=== PATIENT | male | born 1985 | race African-American/Black ===

== ENCOUNTER 2020-06-09 15:52 | Inpatient (IN) | payer OTHER ==
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
[2020-06-09] MEDS ORDERED: LORazepam 2 MG/ML SDV VIAL ONE ×3 (16:33→20:34)
[2020-06-09] MEDS ORDERED: levETIRAcetam 500 MG/5 ML INJECTION VIAL IVPB ONE ×2 (16:51→16:56)
[2020-06-09] MEDS ORDERED: SODIUM CHLORIDE 0.9% 500 ML INFUS.BAG IV ONE ×2 (16:52→19:40)
[2020-06-09] MEDS ORDERED: ALBUTEROL SO4 HFA INHALER IH ONE (17:06)
[2020-06-09 17:13] LABS: BASO % 0.9 % (0-2.0); EOS % 0.1 % (0-4.5); HEMATOCRIT 40.6 % (35.4-49); HEMOGLOBIN 13.4 GM/dL (11.7-16.9); LYMPH % 15.8 % (8-40); MCH 33.6 pg (25.7-33.7); MCHC 33.1 g/dl (32.0-35.9); MEAN CELL VOLUME 101.5 fl (80-96); MEAN PLT VOLUME 10.6 fl (7.5-11.1); MONO % 7.4 % (3.8-10.2); NEUT % 75.8 % (42.8-82.8); RDW 13.1 % (11.9-15.9)
[2020-06-09] MEDS ORDERED: ALBUTEROL SO4 2.5/IPRATROPIUM 0.5 INH SOL 3 ML VIAL.NEB. NEB ONE (17:22)
[2020-06-09 17:29] LABS: ALBUMIN 3.9 g/dl (3.4-5.0); BILIRUBIN,TOTAL 0.6 mg/dL (0.2-1); BLOOD UREA NITROGEN 10.1 mg/dL (7-18); CALCIUM 9.2 mg/dL (8.5-10.1); POTASSIUM 3.5 mmol/L (3.5-5.1); TOT PROT 7.5 g/dl (6.4-8.2)
[2020-06-09 17:35] LABS: PLATELET COUNT 90 K/MM3 (134-434)
--- NOTE | 2020-06-09 17:37 | PDOC ---
Documentation entered by Saira Mcdowell SCRIBE, acting as scribe for Isai Gross MD. Isai Gross MD: This documentation has been prepared by the Jluy sanders Sydney, SCRIBE, under my direction and personally reviewed by me in its entirety. I confirm that the documentation accurately reflects all work, treatment, procedures, and medical decision making performed by me. Attending Attestation - Resident Resident Name: Daily Bonilla - ED Attending Attestation I have performed the following: I have examined & evaluated the patient, The case was reviewed & discussed with the resident, I agree w/resident's findings & plan, Exceptions are as noted - HPI HPI: 06/09/20 17:29 Patient is a 34 year old male with a significant past medical history of EtOH abuse, seizure disorder, who presents to the ED, from [facility], for alcohol withdrawal. As per patient, he had been sweating, shakey, and was nervous he was about to have a seizure, prompting his arrival to the ED. Patient states he last drank alcohol this morning. Patient states he has experienced alcohol withdrawal before and his present symptoms are similar to his previous withdrawal symptoms. Pt was seen at [facility] today but referred to ED for acti ve withdrawal symptoms. Pt also was found to have abnormal EKG. Pt currently denies any CP/SOB. Allergies: NKDA - Physicial Exam PE: 06/09/20 17:30 See resident exam - Medical Decision Making 06/09/20 17:41 34 M with ETOH withdrawal. Has h/o withdrawal seizures. Also noted to have TWI on EKG. Denies any active chest alston. - Labs - Ativan PRN 06/09/20 18:12 Labs wnl Trop negative Discharge - Discharge Information Problems reviewed: Yes Clinical Impression/Diagnosis: Alcohol withdrawal Qualifiers: Complication of substance-induced condition: uncomplicated Qualified Code(s): F10.230 - Alcohol dependence with withdrawal, uncomplicated Condition: Good Disposition: HOME - Follow up/Referral - Patient Discharge Instructions - Post Discharge Activity
[2020-06-09] MEDS ORDERED: ONDANSETRON 4 MG/2 ML VIAL IVPUSH ONE ×2 (20:28→21:48)
[2020-06-09] MEDS ORDERED: chlordiazePOXIDE HCL 25 MG CAPSULE PO ONE (20:47)
[2020-06-09] MEDS ORDERED: chlordiazePOXIDE HCL 25 MG CAPSULE ONE (20:53)
--- NOTE | 2020-06-09 21:00 | PN ---
Teaching Attending Note Name of Resident: Raza Gentile ATTENDING PHYSICIAN STATEMENT I saw and evaluated the patient. I reviewed the resident's note and discussed the case with the resident. I agree with the resident's findings and plan as documented. SUBJECTIVE: Patient is a 34 year old man with a PMH of Seizure disorder, Alcoholism, Hernia chani disc, Chronic back pain (uses Percocet and Marijuana) and Tobacco use sent from [facility] to the ER for alcohol withdrawal and chest pain. He reports that he drinks 1L of vodka a day and that the last time he drank was 1L this morning. He "throws up every day in the morning" until he has a drink. He reports a history of seizures during alcohol withdrawal. His last seizure was last week, during which time he also stopped taking his Keppra. He admits to chest pain, SOB, headache, and tremors. He denies fever, chills, chest pain, diarrhea, dysuria or melena. Denies illicit drug use. No sick contacts or recent travels. Family history is unremarkable. Noted to be anxious, shaking and tachycardic on arrival in the ER. OBJECTIVE: Restless, awake and tremulous Vital Signs Period Temp Pulse Resp BP Sys/[place] Pulse Ox Last 24 Hr 98.2 F 118 20 151/93 95-99 HEENT: No Jaundice, eye redness or discharge, PERRLA, EOMI. Normocephalic, atraumatic. External ears are normal and hearing is grossly intact. No nasal discharge. Neck: Supple, nontender. No palpable adenopathy or thyromegaly. No JVD Chest: Good effort. Clear to auscultation and percussion. Heart: Regular. No S3, rub or murmur Abdomen: Not distended, soft, nontender and no HSM. No rebound or guarding. Normal bowel sounds. Ext: Peripheral pulses intact. No leg edema. Skin: Warm and dry. No petechiae, rash or ecchymosis. Neuro: Alert. Oriented x3. Tremulous. CN 2-12 grossly intact. Sensation grossly intact in all four extremities and DTR are symmetric. Psych: Appropriate mood and affect. Good insight. Home Medications Medication Instructions Recorded NK [No Known Home Medication] 06/09/20 Abnormal Lab Results 06/09/20 06/09/20 16:45 16:51 MCV 101.5 H Plt Count 90 L Nucleated RBC % 1 H Random Glucose 179 H AST 273 H ALT 159 H Current Medications Generic Name Dose Route Start Last Admin Trade Name Yosi PRN Reason Stop Dose Admin Folic Acid 1 mg/ Thiamine HCl 1,000 mls @ 125 mls/hr 06/09/20 22:23 06/09/20 22:36 100 mg/ Multivitamins/Minerals IVPB 06/10/20 06:22 125 mls/hr 10 ml/ Sodium Chloride ONCE ONE Administration ASSESSMENT AND PLAN: 1. Alcohol withdrawal syndrome - Hyperglycemia, macrocytosis, thrombocytopenia and elevated LFTS likely due to alcoholism. Keppra level and urinalysis pending. No acute abnormality on CXR. ER staff prescribed Duoneb, Albuterol, Zofran, Librium, Ativan, Keppra 1 gm IV and IV NS for the patient. EKG shows sinus tachycardia at 119/minute and QTc 444, T wave inversion in III, aVF and V6 with no significant ST changes - no old EKG available for comparison. Will repeat EKG and troponin to rule out ACS. Will implement CIWA Ativan alcohol withdrawal protocol and do neurochecks. Implement seizure, fall and aspiration precautions. Treat with IV Banana bag, thiamine and folic acid. Monitor and replete electrolytes (Ca,Mg,K,P). Counseled patient about abstaining from alcohol. Will consult retail pos specialist and refer to alcohol detox upon discharge. Will check HbA1c, monitor blood glucose and implement insulin sliding scale. Viral testing for COVID-19 ordered and patient placed on airborne, droplet and contact isolation. Started on supplemental oxygen via nasal cannula. Will continue comprehensive care for all of patients comorbid conditions. 2. Tobacco Use Counseled on risks associated with tobacco use. We will provide patient all the necessary assistance to facilitate smoking cessation and prescribe Nicotine patch. 3. Obesity Counseled on the risks associated with obesity. Will provide patient all the necessary assistance, counseling and positive reinforcement to facilitate weight loss. Consult cash applications analyst. 4. DVT prophylaxis - Lovenox 40 mg SQ q 24 hours. 5. Advance directives - Full code
[2020-06-09] MEDS ORDERED: FOLIC ACID INJECTION - 1 MG, THIAMINE HCL 100 MG, MULTIVIT INJECTION ADULT 10 ML in SOD... IVPB ONE ×2 (22:23→23:15)
[2020-06-09] MEDS ORDERED: LORazepam 1 MG TABLET PO SCH (23:00)
[2020-06-09] MEDS ORDERED: LORazepam 1 MG TABLET PO PRN (23:14)
[2020-06-09] MEDS ORDERED: SODIUM CHLORIDE 1,000 ML IV SCH (23:15)
[2020-06-09] MEDS ORDERED: LORazepam 0.5 MG TABLET ONE (23:24)
[2020-06-09 23:55] LABS: EPI CELLS 14 /uL (0-25.1); HYALINE CASTS 7 /uL (0-3.1); URINE APPEARANCE CLEAR; URINE BACTERIA 43.9 /uL (0-1359); URINE BILIRUBIN 1+ (NEGATIVE); URINE COLOR ORANGE; URINE GLUCOSE (UA) NEGATIVE (NEGATIVE); URINE KETONE 1+ (NEGATIVE); URINE LEUK ESTERASE TRACE (NEGATIVE); URINE NITRITE POSITIVE (NEGATIVE); URINE PROTEIN 2+ (NEGATIVE); URINE WBC 13 /uL (0-25.8)
[2020-06-10] MEDS ORDERED: LORazepam 0.5 MG TABLET ONE ×4 (05:49→16:46)
[2020-06-10] MEDS: LORazepam 0.5 MG TABLET PO SCH ×4 (06:04→22:33)
--- NOTE | 2020-06-10 07:11 | HP ---
CHIEF COMPLAINT: alcohol withdrawal- tremors, n/v PCP: none HISTORY OF PRESENT ILLNESS: 34 y/o m w/ PMH of seizure disorder on keppra, alcohol abuse, sent over from [facility] due to chest pain, tremors and anxiety of one day duration that has worsened since onset. He reports that he drinks 1L of vodka a day and that the last time he drank was 1L this morning. He "throws up every day in the morning" until he has a drink. He reports a hx of seizures during alcohol withdrawal. His last seizure was last week, during which time he also stopped taking his Keppra. He admits to palpitations, tremors, nausea, vomit. Denies f/c/hematemesis, diarrhea, numbness or tingling ER course was notable for: (1) ativan 2 mg- multiple times (2) CIWA 11 (3) Keppra 1000 given Recent Travel: denies PAST MEDICAL HISTORY: seizure and alcoholism PAST SURGICAL HISTORY: none Social History: Smoking: denies Alcohol: 1L vodka daily Drugs: marjuana Allergies No Known Allergies Allergy (Verified 06/09/20 16:07) HOME MEDICATIONS: Home Medications Medication Instructions Recorded NK [No Known Home Medication] 06/09/20 REVIEW OF SYSTEMS He admits to palpitations, tremors, nausea, vomit. Denies f/c/hematemesis, diarrhea, numbness or tingling PHYSICAL EXAMINATION Vital Signs - 24 hr 06/09/20 06/09/20 06/09/20 16:08 18:05 20:10 Temperature 98.2 F Pulse Rate 118 H Pulse Rate [ 139 H Apical] Respiratory 20 20 Rate Blood Pressure 151/93 Blood Pressure 128/74 [Left Arm] O2 Sat by Pulse 95 99 97 Oximetry (%) 06/09/20 06/10/20 22:17 06:28 Temperature 98.1 F Pulse Rate Pulse Rate [ 102 H Apical] Respiratory 16 Rate Blood Pressure Blood Pressure 142/85 [Left Arm] O2 Sat by Pulse 97 97 Oximetry (%) GENERAL: tremolous, anxious, shaking, diaphoretic EYES: Pupils equal, round and reactive to light, extraocular movements intact, No lid lag. EARS, NOSE, THROAT: Moist mucous membranes. LUNGS: Breath sounds equal, clear to auscultation bilaterally. No wheezes, and no crackles. HEART: Regular rate and rhythm, normal S1 and S2 without murmur, rub or gallop. ABDOMEN: Soft, tender, distended, normoactive bowel sounds, no guarding, no rebound, no masses. MUSCULOSKELETAL: Normal range of motion at all joints. No bony deformities or tenderness. LOWER EXTREMITIES: 2+ pulses, warm, well-perfused. No calf tenderness. No peripheral edema. NEUROLOGICAL: Cranial nerves II-XII intact. Difficulty speaking due to anxiety SKIN: Warm, dry, normal turgor, no rashes or lesions noted, normal capillary refill. Laboratory Results - last 24 hr 06/09/20 06/09/20 06/09/20 16:45 16:51 23:40 WBC 5.0 RBC 4.00 Hgb 13.4 Hct 40.6 MCV 101.5 H MCH 33.6 MCHC 33.1 RDW 13.1 Plt Count 90 L MPV 10.6 Absolute Neuts (auto) 3.8 Neutrophils % 75.8 Lymphocytes % 15.8 Monocytes % 7.4 Eosinophils % 0.1 Basophils % 0.9 Nucleated RBC % 1 H Sodium 138 Potassium 3.5 Chloride 100 Carbon Dioxide 23 Anion Gap 16 BUN 10.1 Creatinine 1.0 Est GFR (CKD-EPI)AfAm 114.91 Est GFR (CKD-EPI)NonAf 99.15 Random Glucose 179 H Calcium 9.2 Total Bilirubin 0.6 AST 273 H ALT 159 H Alkaline Phosphatase 111 Creatine Kinase 232 Creatine Kinase Index 0.6 CK-MB (CK-2) 1.6 Troponin I 0.02 Total Protein 7.5 Albumin 3.9 Urine Color [place] Urine Appearance Clear Urine pH 6.0 Ur Specific [place] 1.036 H Urine Protein 2+ H Urine Glucose (UA) Negative Urine Ketones 1+ H Urine Blood Negative Urine Nitrite Positive H Urine Bilirubin 1+ H Urine Urobilinogen 1.0 Ur Leukocyte Esterase Trace Urine WBC (Auto) 13 Urine RBC (Auto) 20.0 Urine Casts (Auto) 7 U Epithel Cells (Auto) 14 Urine Bacteria (Auto) 43.9 ASSESSMENT/PLAN: 34 y/o m w/ PMH of seizure disorder on keppra, alcohol abuse, sent over from [facility] due to chest pain, tremors and anxiety of one day duration that has worsened since onset is admitted for alcohol withdrawal #Alcohol withdrawal hx of multiple etoh abuse with withdrawal [facility], tremors, diaphoretic, anxious Ativan protocol initiated thiamine, folate, B12 banana bag ordered IVF given alcohol levels trops, ekg Utox COVID19 #Transaminitis likely 2/2 to alcoholic hepatitis will cont to trend #Seizure hx keppra level ordered #Macrocytosis likely 2/2 to alcoholic liver disease will cont monitor #Asymptomatic UTI no symptoms, UA positive monitor #DVT ppx scds FEN monitor lytes regular diet IVF Dispo: monitor CIWA, cont ativan protocol, can dc to PC once pt stable Visit type - Emergency Visit Emergency Visit: Yes ED Registration Date: 06/09/20 Care time: The patient presented to the Emergency Department on the above date and was hospitalized for further evaluation of their emergent condition. - New Patient This patient is new to me today: Yes Date on this admission: 06/22/20 - Critical Care Critical Care patient: No ATTENDING PHYSICIAN STATEMENT I saw and evaluated the patient. I reviewed the resident's note and discussed the case with the resident. I agree with the resident's findings and plan as documented. SUBJECTIVE: OBJECTIVE: ASSESSMENT AND PLAN:
[2020-06-10 07:19] LABS: BASO % 0.4 % (0-2.0); EOS % 0.2 % (0-4.5); HEMATOCRIT 35.1 % (35.4-49); HEMOGLOBIN 11.5 GM/dL (11.7-16.9); LYMPH % 12.2 % (8-40); MCH 33.2 pg (25.7-33.7); MCHC 32.8 g/dl (32.0-35.9); MEAN CELL VOLUME 101.2 fl (80-96); MEAN PLT VOLUME 10.6 fl (7.5-11.1); MONO % 7.6 % (3.8-10.2); NEUT % 79.6 % (42.8-82.8); PLATELET COUNT 66 K/MM3 (134-434); RBC 3.47 M/mm3 (4.00-5.60); WHITE BLOOD COUNT 7.5 K/mm3 (4.0-10.0)
[2020-06-10 07:46] LABS: ALBUMIN 3.4 g/dl (3.4-5.0); BILIRUBIN,TOTAL 1.6 mg/dL (0.2-1); BLOOD UREA NITROGEN 8.3 mg/dL (7-18); CALCIUM 8.1 mg/dL (8.5-10.1); CREATININE 0.8 mg/dL (0.55-1.3); MAGNESIUM 1.1 mg/dL (1.8-2.4); PHOSPHOROUS 1.7 mg/dL (2.5-4.9); POTASSIUM 3.5 mmol/L (3.5-5.1); TOT PROT 6.3 g/dl (6.4-8.2)
[2020-06-10] MEDS ORDERED: ACETAMINOPHEN 500 MG TABLET (FP) PO ONE (08:41)
--- NOTE | 2020-06-10 08:51 | CON.CARD ---
Cardiology Consult (text) - Consultation Consultation Note: 34 M sent from [facility] with CP. Occurred in setting of chronic etoh abuse, now with withdrawal sx's (tremor, anxiety/agitation). Troponin neg x 2 ECG x3 unchanged: NSR, possible LVH, NSST-Ts ? LVH assctd repol abn, no old CXR clear lungs, normal cardiac/mediastinal silhouette tachycardic, otherwise VSs stable including normal sat. labs notable for thrombocytopenia and transaminitis Formal consult to follow. Plan for now: echo to rule out etoh-cmp consider stress echo once etoh withdrawal is stabilized no targeted ischemia med therapy currently indicated monitor tele, observe clinically for ischemic sx's w/u for cirrhosis/other causes of thrombocytopenia per hospitalist
[2020-06-10] MEDS ORDERED: ACETAMINOPHEN 500 MG TABLET (FP) ONE (09:37)
[2020-06-10] MEDS ORDERED: THIAMINE HCL 200 MG/2 ML VIAL ONE (09:54)
[2020-06-10] MEDS ORDERED: FOLIC ACID 1 MG TABLET (FP) ONE (09:54)
[2020-06-10] MEDS: THIAMINE HCL 200 MG/2 ML VIAL IVPB SCH (09:57)
[2020-06-10] MEDS: FOLIC ACID 1 MG TABLET (FP) PO SCH (09:57)
[2020-06-10] MEDS: CYANOCOBALAMIN (VITAMIN B-12) 100 MCG TABLET PO SCH (09:57)
[2020-06-10 09:59] LABS: COCAINE, UR NEGATIVE ng/ml (CUTOFF=300); METHADONE, UR NEGATIVE ng/ml (CUTOFF=300); PHENCYCLIDINE,URINE NEGATIVE ng/ml (CUTOFF=25); URINE AMPHETAMINES NEGATIVE ng/ml (CUTOFF=500); URINE BARBITURATES NEGATIVE ng/ml (CUTOFF=200)
[2020-06-10] MEDS ORDERED: ASPIRIN 81 MG CHEWABLE TABLETS PO SCH (10:00)
[2020-06-10 10:20] LABS: OPIATES, URI POSITIVE ng/ml (CUTOFF=300); URINE BENZODIAZEPINES POSITIVE ng/ml (CUTOFF=200)
[2020-06-10] MEDS ORDERED: MAGNESIUM SULF 50% (8.12 MEQ/2 ML-1 GM VIAL) IVPB ONE (11:07)
[2020-06-10] MEDS ORDERED: MAGNESIUM SULFATE IN WATER 2 GM/50 ML IVPB IVPB ONE (11:15)
[2020-06-10] MEDS ORDERED: MAGNESIUM 1GM/D5W - 2 GM/200 ML IVPB IVPB ONE (11:22)
--- NOTE | 2020-06-10 11:22 | PN ---
Progress Note (short form) - Note Progress Note: SUBJECTIVE: Complains of shakes, chest discomfort, diarrhea OBJECTIVE: Afebrile, Hemodynamically Stable. Last Vital Signs Temp Pulse Resp BP Pulse Ox 98.9 F 98 H 18 149/93 99 06/10/20 08:06 06/10/20 08:06 06/10/20 10:02 06/10/20 08:06 06/10/20 10:02 HEENT: Atraumatic, Normocephalic. Heart - S1, S2, RRR Lungs - L lower zone crackles. Abdomen - Soft, mils generalized tenderness Extremities - no edema, no calf tenderness Neuro - AAO x 3. Tremulous. No hallucinations/seizures. Laboratory Results - last 24 hr 06/09/20 06/09/20 06/09/20 16:45 16:51 23:40 WBC 5.0 RBC 4.00 Hgb 13.4 Hct 40.6 MCV 101.5 H MCH 33.6 MCHC 33.1 RDW 13.1 Plt Count 90 L MPV 10.6 Absolute Neuts (auto) 3.8 Neutrophils % 75.8 Lymphocytes % 15.8 Monocytes % 7.4 Eosinophils % 0.1 Basophils % 0.9 Nucleated RBC % 1 H Sodium 138 Potassium 3.5 Chloride 100 Carbon Dioxide 23 Anion Gap 16 BUN 10.1 Creatinine 1.0 Est GFR (CKD-EPI)AfAm 114.91 Est GFR (CKD-EPI)NonAf 99.15 Random Glucose 179 H Calcium 9.2 Phosphorus Magnesium Total Bilirubin 0.6 AST 273 H ALT 159 H Alkaline Phosphatase 111 Creatine Kinase 232 Creatine Kinase Index 0.6 CK-MB (CK-2) 1.6 Troponin I 0.02 Total Protein 7.5 Albumin 3.9 Urine Color [place] Urine Appearance Clear Urine pH 6.0 Ur Specific [place] 1.036 H Urine Protein 2+ H Urine Glucose (UA) Negative Urine Ketones 1+ H Urine Blood Negative Urine Nitrite Positive H Urine Bilirubin 1+ H Urine Urobilinogen 1.0 Ur Leukocyte Esterase Trace Urine WBC (Auto) 13 Urine RBC (Auto) 20.0 Urine Casts (Auto) 7 U Epithel Cells (Auto) 14 Urine Bacteria (Auto) 43.9 Opiates Screen Methadone Screen Barbiturate Screen Phencyclidine Screen Ur Amphetamines Screen MDMA (Ecstasy) Screen Benzodiazepines Screen Cocaine Screen U Marijuana (THC) Screen 06/10/20 06/10/20 06/10/20 05:39 05:39 08:14 WBC 7.5 RBC 3.47 L Hgb 11.5 L Hct 35.1 L MCV 101.2 H MCH 33.2 MCHC 32.8 RDW 13.0 Plt Count 66 L D MPV 10.6 Absolute Neuts (auto) 5.9 Neutrophils % 79.6 Lymphocytes % 12.2 D Monocytes % 7.6 Eosinophils % 0.2 D Basophils % 0.4 Nucleated RBC % 1 H Sodium 140 Potassium 3.5 Chloride 105 Carbon Dioxide 27 Anion Gap 8 BUN 8.3 Creatinine 0.8 Est GFR (CKD-EPI)AfAm 136.99 Est GFR (CKD-EPI)NonAf 118.20 Random Glucose 96 Calcium 8.1 L Phosphorus 1.7 L Magnesium 1.1 L Total Bilirubin 1.6 H AST 286 H ALT 143 H Alkaline Phosphatase 93 Creatine Kinase Creatine Kinase Index CK-MB (CK-2) Troponin I 0.03 Total Protein 6.3 L Albumin 3.4 Urine Color Urine Appearance Urine pH Ur Specific [place] Urine Protein Urine Glucose (UA) Urine Ketones Urine Blood Urine Nitrite Urine Bilirubin Urine Urobilinogen Ur Leukocyte Esterase Urine WBC (Auto) Urine RBC (Auto) Urine Casts (Auto) U Epithel Cells (Auto) Urine Bacteria (Auto) Opiates Screen Positive A* Methadone Screen Negative Barbiturate Screen Negative Phencyclidine Screen Negative Ur Amphetamines Screen Negative MDMA (Ecstasy) Screen Negative Benzodiazepines Screen Positive A* Cocaine Screen Negative U Marijuana (THC) Screen Positive A* Current Medications Generic Name Dose Route Start Last Admin Trade Name Freq PRN Reason Stop Dose Admin Cyanocobalamin 100 mcg 06/10/20 10:00 06/10/20 09:57 Vitamin B12 - PO 100 mcg DAILY MICHAEL Administration Folic Acid 1 mg 06/10/20 10:00 06/10/20 09:57 Folic Acid - PO 1 mg DAILY M[place]ALE Administration Sodium Chloride 1,000 mls @ 83 mls/hr 06/09/20 23:15 06/10/20 00:44 Normal Saline - IV 83 mls/hr ASDIR MICHAEL Administration Potassium Phosphate 30 mm/ 510 mls @ 62.5 mls/hr 06/10/20 11:30 Dextrose IVPB 06/10/20 19:39 ONCE ONE Magnesium Sulfate 2 gm in 50 mls @ 50 mls/hr 06/10/20 11:15 Magnesium Sulf 2 G/50 Ml Bag IVPB 06/10/20 12:14 ONCE ONE Lorazepam 1 mg 06/11/20 05:00 Ativan - PO 06/11/20 23:01 0500,1100,1700,2300 MICHAEL Lorazepam 1 mg 06/09/20 23:14 Ativan - PO 06/11/20 23:59 Q4H PRN Symptoms of Withdrawal Lorazepam 0.5 mg 06/12/20 05:00 Ativan - PO 06/12/20 23:01 Q6H MICHAEL Lorazepam 0.5 mg 06/12/20 00:00 Ativan - PO 06/12/20 23:59 Q4H PRN Symptoms of Withdrawal Lorazepam 0.5 mg 06/13/20 05:00 Ativan - PO 06/13/20 05:01 ONCE ONE Lorazepam 2 mg 06/09/20 23:20 06/10/20 10:54 Ativan - PO 06/10/20 23:01 2 mg 0500,1100,1700,2300 MICHAEL Administration Thiamine HCl 200 mg 06/10/20 10:00 06/10/20 09:57 Vitamin B1 Injection - IVPB 200 mg DAILY MICHAEL Administration Home Medications Medication Instructions Recorded NK [No Known Home Medication] 06/09/20 ASSESSMENT/PLAN: 34 year old male with history of Alcohol excess, Alcohol related Seizure disorder, sent from [facility] for Chest discomfort in the context of acute alcohol withdrawal. Also reports some abdominal discomfort associated with coughing and Diarrhea. No sputum/hemoptysis. 1. Acute Alcohol Withdrawal Ativan as per CIWA Thiamine, MVI, Folic Acid IV hydration 2. Elevated Transaminases, likely due to Alcoholic Hepatitis vs Cirrhosis Abdominal US and and Viral Hepatitis screen requested. 3. Cough/CP/crackles LLZ ECG - T wave inversions III, aVF, V6 CXR - no acute findings. ? PNA/?ischemic CP/?COVID CT Chest ordered COVID PCR pending Cardiology consulted 4. Alcohol-related Seizure Disorder Resume Keppra 5. Thrombocytopenia/Macrocytosis, likely sec to Alcohol excess/Liver disease Will send B12/Folate levels. 6. Polysubstance Abuse - Utox pos for opiates/[facility] Addiction [facility] consulted. 7. Hypomagnesemia/hypophosphatemia - repleted. DVT Px - SCDs. Lovenox/Heparin SQ held due to Thrombocytopenia. GI Px - PPI Visit type - Emergency Visit Emergency Visit: Yes ED Registration Date: 06/09/20 Care time: The patient presented to the Emergency Department on the above date and was hospitalized for further evaluation of their emergent condition. - New Patient This patient is new to me today: Yes Date on this admission: 06/10/20 - Critical Care Critical Care patient: No - Discharge Referral Referred to [facility] Med P.C.: No
[2020-06-10] MEDS ORDERED: SODIUM CHLORIDE 1,000 ML IV SCH (11:23)
[2020-06-10] MEDS ORDERED: POTASSIUM PHOSPHATE 30 MM in DEXTROSE 5%-WATER - 500 ML IVPB ONE (11:30)
[2020-06-10] MEDS ORDERED: PANTOPRAZOLE 40 MG TABLET ONE (12:18)
[2020-06-10] MEDS ORDERED: levETIRAcetam 500 MG TABLET (FP) PO ONE (12:19)
[2020-06-10] MEDS: levETIRAcetam 500 MG TABLET (FP) PO SCH (12:37)
[2020-06-10] MEDS: PANTOPRAZOLE 40 MG TABLET PO SCH (12:37)
--- NOTE | 2020-06-10 13:13 | CON.CARD ---
Consult Consult Specialty:: cardio - History of Present Illness Chief Complaint: cp History of Present Illness: 34 M sent from [facility] with CP. Occurred in setting of chronic etoh abuse with retching and hematemesis, and with withdrawal sx's (tremor, anxiety/agitation). Pt also states he has been coughing and feels like his asthmatic sx's, which often includes similar chest wall pain. HURTS MORE WHEN HE COUGHS. denies leg swelling, wheezing, palp Troponin neg x 2 ECG x3 unchanged: NSR, possible LVH, NSST-Ts ? LVH assctd repol abn, no old CXR clear lungs, normal cardiac/mediastinal silhouette tachycardic, otherwise VSs stable including normal sat. labs notable for thrombocytopenia and transaminitis - Smoking History Smoking history: Current every day smoker Have you smoked in the past 12 months: No Home Medications - Allergies Allergies/Adverse Reactions: Allergies Allergy/AdvReac Type Severity Reaction Status Date / Time No Known Allergies Allergy Verified 06/09/20 16:07 - Home Medications Home Medications: Ambulatory Orders NK [No Known Home Medication] 06/09/20 Family Medical History Family History: Denies (no known cmp) Review of Systems - Review of Systems Constitutional: denies: Chills, Fever Eyes: denies: Eye Pain HENT: denies: Nasal Congestion Neck: denies: Stiffness Cardiovascular: denies: Palpitations Respiratory: denies: Orthopnea, PND Gastrointestinal: denies: Diarrhea, Rectal Bleeding Genitourinary: denies: Burning, Hematuria Musculoskeletal: denies: Muscle Pain Integumentary: denies: Rash Neurological: denies: Numbness, Seizure, Syncope Endocrine: denies: Excessive Sweating Hematology/Lymphatic: denies: Excessive Bleeding Vital Signs: Vital Signs Temperature 98.9 F 06/10/20 08:06 Pulse Rate 98 H 06/10/20 08:06 Respiratory Rate 18 06/10/20 10:02 Blood Pressure 149/93 06/10/20 08:06 O2 Sat by Pulse Oximetry (%) 99 06/10/20 10:02 Constitutional: Yes: Well Nourished, No Distress Eyes: No: Sclera Icterus HENT: No: Nasal Congestion Neck: No: Decreased ROM Respiratory: Yes: CTA Bilaterally, Rhonchi, Wheezes (faint L base). No: Accessory Muscle Use, Rales Gastrointestinal: Yes: Normal Bowel Sounds. No: Distention, Hepatomegaly, P alpable Mass, Tenderness Cardiovascular: Yes: Regular Rate and Rhythm JVD: No Carotid Bruit: No PMI: Non-Displaced Heart Sounds: Yes: S1, S2. No: Gallop Murmur: No: Systolic Murmur, Diastolic Murmur Musculoskeletal: Yes: Other (No kyphosis) Extremities: No: Cool, Cyanosis Edema: No Peripheral Pulses: 2+ Left Carotid, 2+ Right Carotid, 2+ Left Doralis Pedis, 2+ Right Dorsalis Pedis Integumentary: No: Jaundice Neurological: Yes: Alert, Oriented (x3) Psychiatric: No: Agitated - Other Data Labs, Other Data: CBC, BMP 06/10/20 05:39 06/10/20 05:39 Troponin, BNP 06/09/20 06/10/20 16:51 05:39 Troponin I 0.02 0.03 Troponin, BNP 06/09/20 06/10/20 16:51 05:39 Troponin I 0.02 0.03 Assessment/Plan ECG x3 unchanged: NSR, possible LVH, NSST-Ts ? LVH assctd repol abn, no old CXR: clear lungs, normal cardiac/mediastinal silhouette chest pain: -pain is pleuritic (with coughing) and tender on palpation over affected area. -secondary to cough with muscle strain -trop neg x 2 and no ischemic changes on serial ECGs confirms this is not cardiac ischemic cp -no further w/u indicated abnormal ecg, etoh abuse: -echo to r/o cardiomyopathy (can be completed as outpt if otherwise stable for d/c) -no clinical signs of CHF transaminitis, thrombocytopenia: -w/u for cirrhosis per hospitalist asthma, cough: -Covid pending -per hospitalist etoh, drug abuse: -per hospitalist
[2020-06-11] MEDS ORDERED: MAGNESIUM SULF 50% (8.12 MEQ/2 ML-1 GM VIAL) IVPB ONE ×2 (01:32→02:22)
[2020-06-11] MEDS ORDERED: NAPH,MB-DB/K PH,MBDB POWDER PACKET PO ONE ×2 (01:34→02:22)
[2020-06-11 02:20] LABS: CALCIUM 9.1 mg/dL (8.5-10.1); CREATININE 0.9 mg/dL (0.55-1.3); MAGNESIUM 1.4 mg/dL (1.8-2.4); PHOSPHOROUS 2.3 mg/dL (2.5-4.9); POTASSIUM 3.1 mmol/L (3.5-5.1)
[2020-06-11] MEDS ORDERED: MAGNESIUM SULFATE IN WATER 2 GM/50 ML IVPB IVPB ONE (02:45)
[2020-06-11] MEDS: KCL 10 MEQ IVPB 10 MEQ/100 ML INFUS.BAG IVPB SCH ×3 (03:00→05:55)
[2020-06-11] MEDS: LORazepam 1 MG TABLET PO SCH ×3 (04:50→17:11)
--- NOTE | 2020-06-11 09:14 | EKG ---
Test Reason : Blood Pressure : / mmHG Vent. Rate : 086 BPM Atrial Rate : 086 BPM P-R Int : 124 ms QRS Dur : 096 ms QT Int : 388 ms P-R-T Axes : 072 069 047 degrees QTc Int : 464 ms NORMAL SINUS RHYTHM MODERATE VOLTAGE CRITERIA FOR LVH, MAY BE NORMAL VARIANT BORDERLINE ECG WHEN COMPARED WITH ECG OF 09-JUN-2020 23:50, T WAVE AMPLITUDE HAS INCREASED IN LATERAL LEADS Confirmed by Pato Pitts ([id number]) on 06/11/2020 9:14:35 AM Referred By: Sudhakar LAZO Confirmed By:Pato Pitts
--- NOTE | 2020-06-11 09:17 | EKG ---
Test Reason : Blood Pressure : / mmHG Vent. Rate : 104 BPM Atrial Rate : 104 BPM P-R Int : 116 ms QRS Dur : 102 ms QT Int : 374 ms P-R-T Axes : 072 062 035 degrees QTc Int : 491 ms SINUS TACHYCARDIA VOLTAGE CRITERIA FOR LEFT VENTRICULAR HYPERTROPHY ABNORMAL ECG WHEN COMPARED WITH ECG OF 09-JUN-2020 16:51, NO SIGNIFICANT CHANGE WAS FOUND Confirmed by Pato Pitts ([id number]) on 06/11/2020 9:17:30 AM Referred By: Confirmed By:Pato Pitts
--- NOTE | 2020-06-11 09:24 | EKG ---
Test Reason : Blood Pressure : / mmHG Vent. Rate : 119 BPM Atrial Rate : 119 BPM P-R Int : 118 ms QRS Dur : 086 ms QT Int : 316 ms P-R-T Axes : 047 061 028 degrees QTc Int : 444 ms SINUS TACHYCARDIA VOLTAGE CRITERIA FOR LEFT VENTRICULAR HYPERTROPHY T WAVE ABNORMALITY, CONSIDER INFERIOR ISCHEMIA ABNORMAL ECG WHEN COMPARED WITH ECG OF 09-JUN-2020 14:04, LA INTERVAL HAS INCREASED Confirmed by Pato Pitts ([id number]) on 06/11/2020 9:23:32 AM Referred By: Confirmed By:Pato Pitts
--- NOTE | 2020-06-11 09:58 | ECHO ---
Name: ABDULAZIZLIVIA LILLIAN Exam:Adult Echocardiogram Study Date: 06/11/2020 08:39 AM Age: 34 yrs Reason For Study: Abnormal Ekg Height: 70 in Weight: 225 lb BSA: 2.2 m2 MMode/2D Measurements & Calculations IVSd: 1.4 cm Ao root diam: 3.8 cm LVIDd: 4.8 cm LA dimension: 3.4 cm LVIDs: 3.7 cm ACS: 3.0 cm LVPWd: 1.1 cm LVPWs: 1.0 cm EDV(Teich): 109.3 ml ESV(Teich): 57.9 ml LVOT diam: 2.7 cm LAV (MOD-bp): 40.1 ml RV S Jamey: 15.3 cm/sec Doppler Measurements & Calculations MVA(VTI): 4.9 cm2 MV E max jamey: 61.4 cm/sec MV V2 max: 69.2 cm/sec MV A max jamey: 59.9 cm/sec MV max P.9 mmHg MV E/A: 1.0 MV V2 mean: 46.7 cm/sec MV mean P.96 mmHg MV V2 VTI: 13.0 cm Ao V2 max: 101.0 cm/sec MV dec slope: 330.9 cm/sec2 Ao max P.1 mmHg Ao V2 mean: 71.7 cm/sec Ao mean P.4 mmHg Ao V2 VTI: 13.6 cm GIOVANNA(I,D): 4.7 cm2 GIOVANNA(V,D): 4.0 cm2 LV V1 max P.9 mmHg SV(LVOT): 64.2 ml LV V1 mean P.96 mmHg LV V1 max: 69.4 cm/sec LV V1 mean: 45.2 cm/sec LV V1 VTI: 11.1 cm TR max jamey: 207.2 cm/sec PA V2 max: 114.0 cm/sec TR max P.2 mmHg PA max P.2 mmHg Med Peak E' Jamey: 6.6 cm/sec Med E/e': 9.3 Lat Peak E' Jamey: 12.7 cm/sec Lat E/e': 4.8 Procedure Study Quality: Fair. Left Ventricle The left ventricle is normal in size. There is borderline concentric left ventricular hypertrophy. Th e left ventricular ejection fraction is normal. Ejection Fraction = 55-60%. Right Ventricle The right ventricle is normal in size and function. Atria Normal left and right atrial size and function. Mitral Valve There is mild to moderate mitral valve thickening. There is trace mitral regurgitation. Tricuspid Valve The tricuspid valve is normal. There is trace tricuspid regurgitation. Aortic Valve The aortic valve is normal in structure and function. Pulmonic Valve The pulmonic valve leaflets are thin and pliable; valve motion is normal. Trace pulmonic valvular regurgitation. Great Vessels The aortic root is normal size. Pericardium/Pleura There is no pericardial effusion. Interpretation Summary LV: Normal size, borderline LVH,normal systolic function EF 55-60% RV: Normal MV: Mildly-moderately thickened, trace MR. Pato Pitts 06/11/2020 09:58 AM
--- NOTE | 2020-06-11 10:20 | EKG ---
Test Reason : Blood Pressure : / mmHG Vent. Rate : 121 BPM Atrial Rate : 121 BPM P-R Int : 088 ms QRS Dur : 092 ms QT Int : 376 ms P-R-T Axes : 064 061 027 degrees QTc Int : 533 ms SINUS TACHYCARDIA POSSIBLE LEFT ATRIAL ENLARGEMENT LEFT VENTRICULAR HYPERTROPHY with repolarization abnormality T WAVE ABNORMALITY, CONSIDER ISCHEMIA ABNORMAL ECG NO PREVIOUS ECGS AVAILABLE Confirmed by Pato Pitts ([id number]) on 06/11/2020 10:20:12 AM Referred By: Confirmed By:Pato Pitts
[2020-06-11] MEDS: PANTOPRAZOLE 40 MG TABLET PO SCH (10:27)
[2020-06-11] MEDS: levETIRAcetam 500 MG TABLET (FP) PO SCH (10:27)
[2020-06-11] MEDS: THIAMINE HCL 200 MG/2 ML VIAL IVPB SCH (10:27)
[2020-06-11] MEDS: FOLIC ACID 1 MG TABLET (FP) PO SCH (10:27)
[2020-06-11] MEDS: CYANOCOBALAMIN (VITAMIN B-12) 100 MCG TABLET PO SCH (10:28)
[2020-06-11 11:50] LABS: BASO % 0.7 % (0-2.0); EOS % 0.7 % (0-4.5); HEMOGLOBIN 12.5 GM/dL (11.7-16.9); LYMPH % 12.5 % (8-40); MCH 33.5 pg (25.7-33.7); MCHC 32.8 g/dl (32.0-35.9); MEAN CELL VOLUME 102.2 fl (80-96); MEAN PLT VOLUME 11.4 fl (7.5-11.1); MONO % 8.8 % (3.8-10.2); NEUT % 77.3 % (42.8-82.8); PLATELET COUNT 53 K/MM3 (134-434); RBC 3.71 M/mm3 (4.00-5.60); RDW 12.8 % (11.9-15.9); WHITE BLOOD COUNT 6.9 K/mm3 (4.0-10.0)
--- NOTE | 2020-06-11 11:52 | PN ---
Progress Note (short form) - Note Progress Note: s: no palps dizzy sob, +cp with coughing Current Medications Generic Name Dose Route Start Last Admin Trade Name Freq PRN Reason Stop Dose Admin Cyanocobalamin 100 mcg 06/10/20 10:00 06/11/20 10:28 Vitamin B12 - PO 100 mcg DAILY MICHAEL Administration Folic Acid 1 mg 06/10/20 10:00 06/11/20 10:27 Folic Acid - PO 1 mg DAILY MICHAEL Administration Sodium Chloride 1,000 mls @ 100 mls/hr 06/10/20 11:23 06/10/20 11:26 Normal Saline - IV 100 mls/hr ASDIR MICHAEL Administration Potassium Chloride 10 meq in 100 mls @ 100 mls/hr 06/11/20 09:15 Potassium Chloride 10 Meq Premix Ivpb - IVPB 06/11/20 12:14 Q60M MICHAEL Levetiracetam 1,000 mg 06/10/20 11:30 06/11/20 10:27 Keppra - PO 1,000 mg DAILY MICHAEL Administration Lorazepam 1 mg 06/11/20 05:00 06/11/20 10:26 Ativan - PO 06/11/20 23:01 1 mg 0500,1100,1700,2300 MICHAEL Administration Lorazepam 1 mg 06/09/20 23:14 06/10/20 13:55 Ativan - PO 06/11/20 23:59 1 mg Q4H PRN Administration Symptoms of Withdrawal Lorazepam 0.5 mg 06/12/20 05:00 Ativan - PO 06/12/20 23:01 Q6H MICHAEL Lorazepam 0.5 mg 06/12/20 00:00 Ativan - PO 06/12/20 23:59 Q4H PRN Symptoms of Withdrawal Lorazepam 0.5 mg 06/13/20 05:00 Ativan - PO 06/13/20 05:01 ONCE ONE Pantoprazole Sodium 40 mg 06/10/20 12:15 06/11/20 10:27 Protonix - PO 40 mg DAILY MICHAEL Administration Thiamine HCl 200 mg 06/10/20 10:00 06/11/20 10:27 Vitamin B1 Injection - IVPB 200 mg DAILY MICHAEL Administration Vital Signs Period Temp Pulse Resp BP Sys/[place] Pulse Ox Last 24 Hr 98.2 F-98.9 F 88-111 18-19 143-150/88-103 96-99 Constitutional: Yes: Well Nourished, No Distress Eyes: No: Sclera Icterus HENT: No: Nasal Congestion Respiratory: Yes: CTA Bilaterally, Rhonchi, Wheezes (faint L base). No: Accessory Muscle Use, Rales Gastrointestinal: Yes: Normal Bowel Sounds. No: Distention, Hepatomegaly, Palpable Mass, Tenderness Cardiovascular: Yes: Regular Rate and Rhythm JVD: No Heart Sounds: Yes: S1, S2. No: Gallop Murmur: No: Systolic Murmur, Diastolic Murmur Extremities: No: Cool, Cyanosis Edema: No Integumentary: No: Jaundice Neurological: Yes: Alert, Oriented (x3) Psychiatric: No: Agitated Laboratory Last Values WBC 7.5 K/mm3 (4.0-10.0) 06/10/20 05:39 RBC 3.47 M/mm3 (4.00-5.60) L 06/10/20 05:39 Hgb 11.5 GM/dL (11.7-16.9) L 06/10/20 05:39 Hct 35.1 % (35.4-49) L 06/10/20 05:39 MCV 101.2 fl (80-96) H 06/10/20 05:39 MCH 33.2 pg (25.7-33.7) 06/10/20 05:39 MCHC 32.8 g/dl (32.0-35.9) 06/10/20 05:39 RDW 13.0 % (11.9-15.9) 06/10/20 05:39 Plt Count 66 K/MM3 (134-434) L D 06/10/20 05:39 MPV 10.6 fl (7.5-11.1) 06/10/20 05:39 Absolute Neuts (auto) 5.9 K/mm3 (1.5-8.0) 06/10/20 05:39 Neutrophils % 79.6 % (42.8-82.8) 06/10/20 05:39 Lymphocytes % 12.2 % (8-40) D 06/10/20 05:39 Monocytes % 7.6 % (3.8-10.2) 06/10/20 05:39 Eosinophils % 0.2 % (0-4.5) D 06/10/20 05:39 Basophils % 0.4 % (0-2.0) 06/10/20 05:39 Nucleated RBC % 1 % (0-0) H 06/10/20 05:39 Sodium 142 mmol/L (136-145) 06/11/20 01:30 Potassium 3.1 mmol/L (3.5-5.1) L 06/11/20 01:30 Chloride 107 mmol/L (98-107) 06/11/20 01:30 Carbon Dioxide 24 mmol/L (21-32) 06/11/20 01:30 Anion Gap 11 MMOL/L (8-16) 06/11/20 01:30 BUN 3.0 mg/dL (7-18) L 06/11/20 01:30 Creatinine 0.9 mg/dL (0.55-1.3) 06/11/20 01:30 Est GFR (CKD-EPI)AfAm 130.52 06/11/20 01:30 Est GFR (CKD-EPI)NonAf 112.62 06/11/20 01:30 POC Glucometer 105 UNITS (80-120) 06/11/20 11:16 Random Glucose 137 mg/dL (74-106) H 06/11/20 01:30 Calcium 9.1 mg/dL (8.5-10.1) 06/11/20 01:30 Phosphorus 2.3 mg/dL (2.5-4.9) L 06/11/20 01:30 Magnesium 1.4 mg/dL (1.8-2.4) L 06/11/20 01:30 Total Bilirubin 1.6 mg/dL (0.2-1) H 06/10/20 05:39 AST 286 U/L (15-37) H 06/10/20 05:39 ALT 143 U/L (13-61) H 06/10/20 05:39 Alkaline Phosphatase 93 U/L (45-117) 06/10/20 05:39 Creatine Kinase 232 U/L (26-308) 06/09/20 16:51 Creatine Kinase Index 0.6 % (0.0-5.0) 06/09/20 16:51 CK-MB (CK-2) 1.6 ng/mL (0.5-3.6) 06/09/20 16:51 Troponin I 0.03 ng/ml (0.00-0.05) 06/10/20 05:39 Total Protein 6.3 g/dl (6.4-8.2) L 06/10/20 05:39 Albumin 3.4 g/dl (3.4-5.0) 06/10/20 05:39 Urine Color [place] 06/09/20 23:40 Urine Appearance Clear 06/09/20 23:40 Urine pH 6.0 (5.0-8.0) 06/09/20 23:40 Ur Specific [place] 1.036 (1.010-1.035) H 06/09/20 23:40 Urine Protein 2+ (NEGATIVE) H 06/09/20 23:40 Urine Glucose (UA) Negative (NEGATIVE) 06/09/20 23:40 Urine Ketones 1+ (NEGATIVE) H 06/09/20 23:40 Urine Blood Negative (NEGATIVE) 06/09/20 23:40 Urine Nitrite Positive (NEGATIVE) H 06/09/20 23:40 Urine Bilirubin 1+ (NEGATIVE) H 06/09/20 23:40 Urine Urobilinogen 1.0 mg/dL (0.2-1.0) 06/09/20 23:40 Ur Leukocyte Esterase Trace (NEGATIVE) 06/09/20 23:40 Urine WBC (Auto) 13 /uL (0-25.8) 06/09/20 23:40 Urine RBC (Auto) 20.0 /uL (0-23.9) 06/09/20 23:40 Urine Casts (Auto) 7 /uL (0-3.1) 06/09/20 23:40 U Epithel Cells (Auto) 14 /uL (0-25.1) 06/09/20 23:40 Urine Bacteria (Auto) 43.9 /uL (0-1359) 06/09/20 23:40 Opiates Screen Positive ng/ml (RNDTOG=729) A* 06/10/20 08:14 Methadone Screen Negative ng/ml (OETBOP=828) 06/10/20 08:14 Barbiturate Screen Negative ng/ml (UBHBCD=312) 06/10/20 08:14 Phencyclidine Screen Negative ng/ml (CUTOFF=25) 06/10/20 08:14 Ur Amphetamines Screen Negative ng/ml (PTYNAJ=361) 06/10/20 08:14 MDMA (Ecstasy) Screen Negative ng/ml (KQEQOS=374) 06/10/20 08:14 Benzodiazepines Screen Positive ng/ml (OXTONI=543) A* 06/10/20 08:14 Cocaine Screen Negative ng/ml (PIMDEQ=055) 06/10/20 08:14 U Marijuana (THC) Screen Positive ng/ml (CUTOFF=50) A* 06/10/20 08:14 Alcohol, Quantitative < 3 mg/dL (0.0-5.0) 06/10/20 11:05 Assessment/Plan ECG x3 unchanged: NSR, possible LVH, NSST-Ts ? LVH assctd repol abn, no old CXR: clear lungs, normal cardiac/mediastinal silhouette chest pain: -pain is pleuritic (with coughing) and tender on palpation over affected area. -secondary to cough with muscle strain -trop neg x 2 and no ischemic changes on serial ECGs confirms this is not cardiac ischemic cp -no further w/u indicated abnormal ecg, etoh abuse: -echo here unremarkable -no clinical signs of CHF transaminitis, thrombocytopenia: -w/u for cirrhosis per hospitalist asthma, cough: -Covid pending -per hospitalist etoh, drug abuse: -per hospitalist
[2020-06-11 12:15] LABS: ALBUMIN 3.5 g/dl (3.4-5.0); CALCIUM 9.2 mg/dL (8.5-10.1); CREATININE 0.7 mg/dL (0.55-1.3); MAGNESIUM 1.9 mg/dL (1.8-2.4); PHOSPHOROUS 2.6 mg/dL (2.5-4.9); POTASSIUM 3.4 mmol/L (3.5-5.1); TOT PROT 6.6 g/dl (6.4-8.2)
[2020-06-11 12:17] VITALS: BP 152/94; PULSE 98; TEMP 98
[2020-06-11 12:21] LABS: CHOLESTEROL 192 mg/dL (50-200); HDL CHOLESTEROL 132 mg/dL (40-60); LDL CHOLESTEROL (ONLY SJRH) 35 mg/dL (5-100); TRIGLYCERIDES 74 mg/dL (0-150)
[2020-06-11 12:46] LABS: PLATELET ESTIMATE DECREASED
[2020-06-11] MEDS ORDERED: KCL 10 MEQ IVPB 10 MEQ/100 ML INFUS.BAG IVPB SCH (13:45)
[2020-06-11] MEDS ORDERED: POTASSIUM CHLORIDE TABS 20 MEQ TABLET.ER (FP) PO ONE (15:30)
[2020-06-11] MEDS ORDERED: NICOTINE 7 MG/24 HOURS TOPICAL PATCH TD SCH (15:30)
--- NOTE | 2020-06-11 17:23 | PN ---
Teaching Attending Note Name of Resident: Basil Santiago ATTENDING PHYSICIAN STATEMENT I saw and evaluated the patient. I reviewed the resident's note and discussed the case with the resident. I agree with the resident's findings and plan as documented. SUBJECTIVE: Shakes improving, some ongoing diarrhea OBJECTIVE: Afebrile, Hemodynamically Stable. Last Vital Signs Temp Pulse Resp BP Pulse Ox 98.9 F 98 H 18 149/93 99 06/10/20 08:06 06/10/20 08:06 06/10/20 10:02 06/10/20 08:06 06/10/20 10:02 Heart - S1, S2, RRR Lungs - good air entry Abdomen - Soft, non-tender. Extremities - no edema, no calf tenderness Neuro - AAO x 3. Tremor improving. No hallucinations/seizures. Laboratory Results - last 24 hr 06/11/20 06/11/20 06/11/20 01:30 06:20 11:13 WBC RBC Hgb Hct MCV MCH MCHC RDW Plt Count MPV Absolute Neuts (auto) Neutrophils % Lymphocytes % Monocytes % Eosinophils % Basophils % Nucleated RBC % Platelet Estimate Platelet Comment Sodium 142 Potassium 3.1 L Chloride 107 Carbon Dioxide 24 Anion Gap 11 BUN 3.0 L Creatinine 0.9 Est GFR (CKD-EPI)AfAm 130.52 Est GFR (CKD-EPI)NonAf 112.62 POC Glucometer 111 Random Glucose 137 H Calcium 9.1 Phosphorus 2.3 L Magnesium 1.4 L Total Bilirubin AST ALT Alkaline Phosphatase Total Protein Albumin Triglycerides 74 Cholesterol 192 Total LDL Cholesterol 35 HDL Cholesterol 132 H Vitamin B12 1283 H Serum Folate 16 06/11/20 06/11/20 06/11/20 11:13 11:13 11:16 WBC 6.9 RBC 3.71 L Hgb 12.5 Hct 38.0 MCV 102.2 H MCH 33.5 MCHC 32.8 RDW 12.8 Plt Count 53 L MPV 11.4 H Absolute Neuts (auto) 5.3 Neutrophils % 77.3 Lymphocytes % 12.5 Monocytes % 8.8 Eosinophils % 0.7 D Basophils % 0.7 Nucleated RBC % 0 Platelet Estimate Decreased Platelet Comment Present Sodium 140 Potassium 3.4 L Chloride 106 Carbon Dioxide 26 Anion Gap 8 BUN 4.0 L Creatinine 0.7 Est GFR (CKD-EPI)AfAm 144.72 Est GFR (CKD-EPI)NonAf 124.87 POC Glucometer 105 Random Glucose 87 Calcium 9.2 Phosphorus 2.6 Magnesium 1.9 Total Bilirubin 1.0 AST 136 H ALT 119 H Alkaline Phosphatase 96 Total Protein 6.6 Albumin 3.5 Triglycerides Cholesterol Total LDL Cholesterol HDL Cholesterol Vitamin B12 Serum Folate Current Medications Generic Name Dose Route Start Last Admin Trade Name Freq PRN Reason Stop Dose Admin Cyanocobalamin 100 mcg 06/10/20 10:00 06/11/20 10:28 Vitamin B12 - PO 100 mcg DAILY MICHAEL Administration Folic Acid 1 mg 06/10/20 10:00 06/11/20 10:27 Folic Acid - PO 1 mg DAILY MICHAEL Administration Sodium Chloride 1,000 mls @ 100 mls/hr 06/10/20 11:23 06/10/20 11:26 Normal Saline - IV 100 mls/hr ASDIR MICHAEL Administration Levetiracetam 1,000 mg 06/10/20 11:30 06/11/20 10:27 Keppra - PO 1,000 mg DAILY MICHAEL Administration Lorazepam 1 mg 06/11/20 05:00 06/11/20 17:11 Ativan - PO 06/11/20 23:01 1 mg 0500,1100,1700,2300 MICHAEL Administration Lorazepam 1 mg 06/09/20 23:14 06/10/20 13:55 Ativan - PO 06/11/20 23:59 1 mg Q4H PRN Administration Symptoms of Withdrawal Lorazepam 0.5 mg 06/12/20 05:00 Ativan - PO 06/12/20 23:01 Q6H MICHAEL Lorazepam 0.5 mg 06/12/20 00:00 Ativan - PO 06/12/20 23:59 Q4H PRN Symptoms of Withdrawal Lorazepam 0.5 mg 06/13/20 05:00 Ativan - PO 06/13/20 05:01 ONCE ONE Nicotine 7 mg 06/11/20 15:30 06/11/20 17:16 Nicoderm Patch - TD Not Given DAILY [facility] Pantoprazole Sodium 40 mg 06/10/20 12:15 06/11/20 10:27 Protonix - PO 40 mg DAILY MICHAEL Administration Thiamine HCl 200 mg 06/10/20 10:00 06/11/20 10:27 Vitamin B1 Injection - IVPB 200 mg DAILY MICHAEL Administration Home Medications Medication Instructions Recorded Folic Acid 0.8 mg PO DAILY #30 capsule 06/11/20 LORazepam [Ativan] 0.5 mg PO Q4H PRN tablet 06/11/20 LORazepam [Ativan] 0.5 mg PO Q6H tablet 06/11/20 LORazepam [Ativan] 1 mg PO 0500,1100,1700,2300 tablet 06/11/20 LORazepam [Ativan] 1 mg PO Q4H PRN tablet 06/11/20 LORazepam [Ativan] 2 mg PO 0500,1100,1700,2300 tablet 06/11/20 LORazepam [Ativan] 2 mg PO 0500,1100,1700,2300 tablet 06/11/20 Metoprolol Succinate [Toprol Xl] 50 mg PO DAILY 06/11/20 Nicotine Patch [Nicoderm Patch -] 7 mg TD DAILY patch 06/11/20 Pantoprazole Sodium [Protonix] 40 mg PO DAILY #30 tablet. 06/11/20 Thiamine HCl 100 gm MC DAILY #30 powder 06/11/20 levETIRAcetam [Keppra -] 500 mg PO BID 06/11/20 ASSESSMENT/PLAN: 34 year old male with history of Alcohol excess, Alcohol related Seizure disorder, sent from [facility] for Chest discomfort in the context of acute alcohol withdrawal. Also reports some abdominal discomfort associated with coughing and Diarrhea. No sputum/hemoptysis. 1. Acute Alcohol Withdrawal Ativan as per CIWA - to be completed at [facility] Thiamine, MVI, Folic Acid 2. Elevated Transaminases, likely due to Alcoholic Hepatitis vs YAN Abdominal US - fatty liver. Viral Hepatitis screen pending - for out-patient GI follow up. 3. Cough/CP/crackles LLZ ECG - T wave inversions III, aVF, V6 CXR - no acute findings. CT Chest - no infiltrate, fatty liver Echo - borderline LVH. COVID PCR pending Cardiology consulted and recommend no further work-up needed. 4. Alcohol-related Seizure Disorder Resume Keppra 5. Thrombocytopenia/Macrocytosis, likely sec to Alcohol excess/Liver disease B12/Folate not deficient 6. Polysubstance Abuse - Utox pos for opiates/[facility] Addiction Medicine consulted - for transfer to [facility] to complete Alcohol Detox. 7. Hypomagnesemia/Hypophosphatemia/Hypokalemia - repleted. 8. Diarrhea, possible sec to withdrawal. Benign abdomen. Cdiff toxin negative. Medically Stable for discharge to [facility] to complete Alcohol withdrawal Ativan protocol.
--- NOTE | 2020-06-11 17:23 | DS ---
Physical Exam: SUBJECTIVE: Patient seen and examined at bedside. The patient's tremors have improved and he still has some diarrhea. The patient agreed to go to [facility]. OBJECTIVE: Vital Signs Period Temp Pulse Resp BP Sys/Valdez Pulse Ox Last 24 Hr 98 F-98.4 F 88-98 18-18 143-152/88-94 95-99 PHYSICAL EXAM GENERAL: The patient is awake, alert, and fully oriented, in no acute distress. HEAD: Normal with no signs of trauma. EYES: Extraocular movements intact. ENT: Ears normal, nares patent, oropharynx clear without exudates, moist mucous membranes. NECK: Trachea midline, full range of motion, supple. LUNGS: Breath sounds equal, clear to auscultation bilaterally, no wheezes, no crackles, no accessory muscle use. HEART: Regular rate and rhythm, S1, S2 without murmur, rub or gallop. ABDOMEN: Soft, nontender, nondistended, normoactive bowel sounds, no guarding, no rebound, no masses. EXTREMITIES: 2+ pulses, warm, well-perfused, no edema. NEUROLOGICAL: Normal speech, gait not observed. PSYCH: Normal mood, normal affect. SKIN: Warm, dry, normal turgor, no rashes or lesions noted. LABS Laboratory Results - last 24 hr 06/11/20 06/11/20 06/11/20 01:30 06:20 11:13 WBC RBC Hgb Hct MCV MCH MCHC RDW Plt Count MPV Absolute Neuts (auto) Neutrophils % Lymphocytes % Monocytes % Eosinophils % Basophils % Nucleated RBC % Platelet Estimate Platelet Comment Sodium 142 Potassium 3.1 L Chloride 107 Carbon Dioxide 24 Anion Gap 11 BUN 3.0 L Creatinine 0.9 Est GFR (CKD-EPI)AfAm 130.52 Est GFR (CKD-EPI)NonAf 112.62 POC Glucometer 111 Random Glucose 137 H Calcium 9.1 Phosphorus 2.3 L Magnesium 1.4 L Total Bilirubin AST ALT Alkaline Phosphatase Total Protein Albumin Triglycerides 74 Cholesterol 192 Total LDL Cholesterol 35 HDL Cholesterol 132 H Vitamin B12 1283 H Serum Folate 16 06/11/20 06/11/20 06/11/20 11:13 11:13 11:16 WBC 6.9 RBC 3.71 L Hgb 12.5 Hct 38.0 MCV 102.2 H MCH 33.5 MCHC 32.8 RDW 12.8 Plt Count 53 L MPV 11.4 H Absolute Neuts (auto) 5.3 Neutrophils % 77.3 Lymphocytes % 12.5 Monocytes % 8.8 Eosinophils % 0.7 D Basophils % 0.7 Nucleated RBC % 0 Platelet Estimate Decreased Platelet Comment Present Sodium 140 Potassium 3.4 L Chloride 106 Carbon Dioxide 26 Anion Gap 8 BUN 4.0 L Creatinine 0.7 Est GFR (CKD-EPI)AfAm 144.72 Est GFR (CKD-EPI)NonAf 124.87 POC Glucometer 105 Random Glucose 87 Calcium 9.2 Phosphorus 2.6 Magnesium 1.9 Total Bilirubin 1.0 AST 136 H ALT 119 H Alkaline Phosphatase 96 Total Protein 6.6 Albumin 3.5 Triglycerides Cholesterol Total LDL Cholesterol HDL Cholesterol Vitamin B12 Serum Folate HOSPITAL COURSE: Date of Admission:06/09/20 34 year old male patient with past medical history of alcohol use and alcohol related seizure disorder, who presented from [facility] for acute alcohol withdrawal with chest discomfort. The patient also had some abdominal discomfort, diarrhea, and a cough. Ativan protocol was initiated and the patient was given a banana bag, thiamine, folate, B12, and IV fluids. ECG showed some T wave inversions in leads III, aVF, and V6. Troponins were negative x 2. ECHO showed borderline LVH. With the cough, CXR showed no acute findings. Also, CT chest showed no infiltrate, but did show a fatty liver. Transaminases were elevated with the AST:ALT ratio about 2:1. Viral Hepatitis panel was negative for Hep A, B, and C. COVID was negative. With the diarrhea, C. Diff. Toxin was negative. The patient was discharged back to [facility]. Date of Discharge: 06/11/20 Minutes to complete discharge: 38 Discharge Summary Problems reviewed: Yes Reason For Visit: ALCOHOL WITHDRAWL SYNDROME Condition: Good - Instructions Diet, Activity, Other Instructions: You were admitted to the hospital for tremors, chest pain, and nervousness While you were in the hospital, we evaluated you with lab work, blood work, imaging including a Echocardiogram of the heart. We found that your symptoms were caused by alcohol withdrawal. We treated you with medications and your symptoms improved. You were also evaluated by the packer and found no abnormalities in your heart. You will be sent to [facility] to complete your detox. Please ensure you complete your detox to prevent relapse and further alcohol withdrawal symptoms. You will need to continue your Ativan Detox that was started on 06/09/2020 as instructed at [facility] Medications: We have made some changes to your medications, please take the following medications as prescribed Please START taking Folic acid and Thiamine daily as instructed Please START taking Protonix 40 mg daily Please START taking Keppra 500 mg twice daily Please take Imodium for continuing Diarrhea as required Please take all your medications as prescribed Please follow up with the packer, Dr. Jefferson, if you need any further evaluation in the future. Please follow up with Dr. Parker out patient for further evaluation of your seizures. Please follow with Dr. Madrid, your Detox physician at [facility] for continuation of your detox Return to the emergency room, if you experience any worsening of your symptoms, chest pain, abdominal pain or any further worsening of your condition. Referrals: Temo Jefferson MD [Staff Physician] - 1 Week Geovani Madrid DO [Staff Physician] - 1 Week Daria Dejesus MD [Staff Physician] - 1 Week Disposition: HOME - Home Medications Comprehensive Discharge Medication List: Ambulatory Orders Folic Acid 0.8 mg PO DAILY #30 capsule 06/11/20 LORazepam [Ativan] 0.5 mg PO Q4H PRN tablet 06/11/20 LORazepam [Ativan] 0.5 mg PO Q6H tablet 06/11/20 LORazepam [Ativan] 1 mg PO 0500,1100,1700,2300 tablet 06/11/20 LORazepam [Ativan] 1 mg PO Q4H PRN tablet 06/11/20 LORazepam [Ativan] 2 mg PO 0500,1100,1700,2300 tablet 06/11/20 LORazepam [Ativan] 2 mg PO 0500,1100,1700,2300 tablet 06/11/20 Metoprolol Succinate [Toprol Xl] 50 mg PO DAILY 06/11/20 Nicotine Patch [Nicoderm Patch -] 7 mg TD DAILY patch 06/11/20 Pantoprazole Sodium [Protonix] 40 mg PO DAILY #30 tablet. 06/11/20 Thiamine HCl 100 gm MC DAILY #30 powder 06/11/20 levETIRAcetam [Keppra -] 500 mg PO BID 06/11/20 This patient is new to me today: No Emergency Visit: Yes ED Registration Date: 06/09/20 Care time: The patient presented to the Emergency Department on the above date and was hospitalized for further evaluation of their emergent condition. Critical Care patient: No - Discharge Referral Referred to [facility] No ATTENDING PHYSICIAN STATEMENT I saw and evaluated the patient. I reviewed the resident's note and discussed the case with the resident. I agree with the resident's findings and plan as documented. SUBJECTIVE: OBJECTIVE: ASSESSMENT AND PLAN:
[2020-06-11 18:59] VITALS: BMI 28.1
[2020-06-12] MEDS ORDERED: LORazepam 0.5 MG TABLET PO PRN
[2020-06-12] MEDS ORDERED: LORazepam 0.5 MG TABLET PO SCH (05:00)
[2020-06-13] MEDS ORDERED: LORazepam 0.5 MG TABLET PO ONE (05:00)
== END 2020-06-11 18:35 | disposition home or self-care (01) | DRG 203 ==
LOC: JER 15:52 → JERBED 20:36 → J6S 06-10 17:38
PROVIDERS: ADMIT Internal Medicine
PROC: HZ2ZZZZ Detoxification Services for Substance Abuse Treatment (ICD-10-PCS; principal; 2020-06-09)
DX: R07.89 Other chest pain (principal); F10.239 Alcohol dependence with withdrawal, unspecified; G40.909 Epilepsy, unspecified, not intractable, without status epilepticus; E83.42 Hypomagnesemia; E83.39 Other disorders of phosphorus metabolism; K92.0 Hematemesis; R94.31 Abnormal electrocardiogram [ECG] [EKG]; F11.10 Opioid abuse, uncomplicated; R19.7 Diarrhea, unspecified; R05 Cough; K70.10 Alcoholic hepatitis without ascites; D75.89 Other specified diseases of blood and blood-forming organs; F12.10 Cannabis abuse, uncomplicated; R74.0 Nonspecific elevation of levels of transaminase and lactic acid dehydrogenase [LDH]; F17.210 Nicotine dependence, cigarettes, uncomplicated; F43.10 Post-traumatic stress disorder, unspecified; M54.5 Low back pain; E66.9 Obesity, unspecified; Z68.28 Body mass index [BMI] 28.0-28.9, adult; D69.6 Thrombocytopenia, unspecified; N39.0 Urinary tract infection, site not specified; F41.9 Anxiety disorder, unspecified; E87.6 Hypokalemia; R25.1 Tremor, unspecified
CPT/HCPCS: 36415; 71045-TC-FY; 71250-TC; 76705-TC; 80048; 80053; 80061; 80074; 80177; 80307; 81003; 82550; 82553; 82607; 82746; 82962; 83721; 83735; 84100; 84484; 85025; 87045; 87046; 87086; 87324; 87449; 93005; 93010; 93306-TC; 99285-25; U0003

== ENCOUNTER 2020-06-11 18:52 | Inpatient (IN) | payer OTHER ==
[2020-06-11 19:27] VITALS: BMI 28.7
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
[2020-06-11] MEDS ORDERED: ACETAMINOPHEN 325 MG TABLET (FP) PO PRN (19:56)
[2020-06-11] MEDS ORDERED: MAGNESIUM CITRATE 300 ML BOTTLE PO PRN (19:56)
[2020-06-11] MEDS ORDERED: MAGNESIUM HYDROX 2400MG/30ML ORAL SUSPENSION 30 ML CUP PO PRN (19:56)
[2020-06-11] MEDS ORDERED: MENTHOL/PHENOL 1 EACH UD MM PRN (19:56)
[2020-06-11] MEDS ORDERED: ONDANSETRON *ODT* 4 MG TABLET SL PRN (19:56)
[2020-06-11] MEDS ORDERED: MAG HYDROX/AL HYDROX/SIMETH 30 ML UNIT-DOSE CUP PO PRN (19:56)
[2020-06-11] MEDS ORDERED: BISMUTH SUBSALICYLATE 524 MG/30 ML UD PO PRN (19:56)
[2020-06-11] MEDS ORDERED: chlordiazePOXIDE HCL 25 MG CAPSULE PO PRN (19:59)
[2020-06-11] MEDS ORDERED: chlordiazePOXIDE HCL 25 MG CAPSULE PO ONE (19:59)
[2020-06-11] MEDS ORDERED: METOPROLOL TARTRATE 25 MG TABLET (FP) PO ONE (20:00)
[2020-06-11] MEDS ORDERED: ALBUTEROL SO4 0.083% IH SOL 2.5 MG/3 ML VIAL.NEB. NEB PRN (21:08)
[2020-06-11] MEDS ORDERED: ALBUTEROL SO4 HFA INHALER IH PRN (21:15)
[2020-06-11] MEDS: levETIRAcetam 500 MG TABLET (FP) PO SCH (21:56)
[2020-06-11] MEDS: hydrOXYzine PAMOATE 25 MG CAPSULE (FP) PO PRN (21:57)
[2020-06-11] MEDS: THIAMINE HCL 100 MG TABLET (FP) PO SCH (21:57)
[2020-06-11] MEDS: MELATONIN 5 MG TABLETS PO SCH (21:58)
[2020-06-11] MEDS: chlordiazePOXIDE HCL 25 MG CAPSULE PO SCH (22:19)
[2020-06-12] MEDS: chlordiazePOXIDE HCL 25 MG CAPSULE PO SCH ×4 (05:26→22:08)
[2020-06-12] MEDS ORDERED: PATIENT'S OWN MEDICATION (NON-FORMULARY) (Folic Acid [Folic Acid] 0.8 MG) PO SCH (10:00)
[2020-06-12] MEDS: PANTOPRAZOLE 40 MG TABLET PO SCH (10:09)
[2020-06-12] MEDS: levETIRAcetam 500 MG TABLET (FP) PO SCH ×2 (10:09→22:08)
[2020-06-12] MEDS: THIAMINE HCL 100 MG TABLET (FP) PO SCH ×2 (10:09→22:09)
[2020-06-12] MEDS: PRENATAL VITAMINS W/ FOLIC ACID TABLET (FP) PO SCH (10:09)
[2020-06-12] MEDS: FOLIC ACID 1 MG TABLET (FP) PO SCH (10:09)
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
[2020-06-12] MEDS: METHOCARBAMOL 500 MG TABLET PO PRN ×2 (10:13→17:31)
[2020-06-12] MEDS: IBUPROFEN 400 MG TABLET (FP) PO PRN ×2 (10:13→17:31)
[2020-06-12] MEDS: SERTRALINE HCL 50 MG TABLET (FP) PO SCH (11:18)
--- NOTE | 2020-06-12 11:51 | PN ---
S CIWA - CIWA Score Nausea/Vomitin Muscle Tremors: 2 Anxiety: 2 Agitation: 2 Paroxysmal Sweats: No Perspiration Orientation: 0-Oriented Tacttile Disturbances: 1-Very Mild Itch/Numbness Auditory Disturbances: 0-None Visual Disturbances: 0-None Headache: 1-Very Mild CIWA-Ar Total Score: 10 BHS Progress Note (SOAP) Subjective: alert,irritable,anxious,interrupted sleep,tremor,pain in the back Objective: 06/12/20 11:50 Vital Signs Temperature 97.1 F L 06/12/20 08:44 Pulse Rate 89 06/12/20 08:44 Respiratory Rate 16 06/12/20 08:44 Blood Pressure 144/87 06/12/20 08:44 O2 Sat by Pulse Oximetry (%) 98 06/12/20 08:44 Laboratory Last Values Syphilis Serology Non-reactive (NONREACTIVE) 06/12/20 07:50 06/12/20 11:53 patient has covid 19 test 0n 12/10/19 not detected at [facility] Assessment: 06/12/20 11:56 withdrawal symptom Plan: continue detox librium regimen,ambulation with cane,seizure precaution
[2020-06-12] MEDS: hydrOXYzine PAMOATE 25 MG CAPSULE (FP) PO PRN ×2 (17:31→22:07)
[2020-06-12] MEDS: QUEtiapine FUMARATE 50 MG TABLET PO SCH (22:09)
[2020-06-12] MEDS: MELATONIN 5 MG TABLETS PO SCH (22:09)
[2020-06-13] MEDS: chlordiazePOXIDE HCL 25 MG CAPSULE PO SCH ×4 (05:24→22:12)
[2020-06-13] MEDS: ACETAMINOPHEN 325 MG TABLET (FP) PO PRN ×2 (05:39→17:35)
[2020-06-13] MEDS: METHOCARBAMOL 500 MG TABLET PO PRN ×2 (05:39→17:35)
[2020-06-13 09:55] LABS: HEMOGLOBIN 11.6 GM/dL (11.7-16.9); MCH 34.1 pg (25.7-33.7); MCHC 33.1 g/dl (32.0-35.9); MEAN CELL VOLUME 102.9 fl (80-96); MEAN PLT VOLUME 11.8 fl (7.5-11.1); PLATELET COUNT 59 K/MM3 (134-434); RDW 12.9 % (11.9-15.9); WHITE BLOOD COUNT 6.2 K/mm3 (4.0-10.0)
[2020-06-13 10:08] LABS: CALCIUM 9.4 mg/dL (8.5-10.1); POTASSIUM 3.6 mmol/L (3.5-5.1)
[2020-06-13 10:13] LABS: ALBUMIN 3.3 g/dl (3.4-5.0); BILIRUBIN,TOTAL 0.6 mg/dL (0.2-1); CREATININE 0.7 mg/dL (0.55-1.3); TOT PROT 6.3 g/dl (6.4-8.2)
[2020-06-13] MEDS: FOLIC ACID 1 MG TABLET (FP) PO SCH (10:50)
[2020-06-13] MEDS: levETIRAcetam 500 MG TABLET (FP) PO SCH ×2 (10:51→22:11)
[2020-06-13] MEDS: PRENATAL VITAMINS W/ FOLIC ACID TABLET (FP) PO SCH (10:51)
[2020-06-13] MEDS: THIAMINE HCL 100 MG TABLET (FP) PO SCH ×2 (10:51→22:12)
[2020-06-13] MEDS: PANTOPRAZOLE 40 MG TABLET PO SCH (10:51)
[2020-06-13] MEDS: SERTRALINE HCL 50 MG TABLET (FP) PO SCH (10:51)
[2020-06-13] MEDS: hydrOXYzine PAMOATE 25 MG CAPSULE (FP) PO PRN (10:54)
--- NOTE | 2020-06-13 12:01 | PN ---
[facility] CIWA - CIWA Score Nausea/Vomitin-Mild Nausea/No Vomiting Muscle Tremors: 2 Anxiety: 2 Agitation: 2 Paroxysmal Sweats: No Perspiration Orientation: 0-Oriented Tacttile Disturbances: 1-Very Mild Itch/Numbness Auditory Disturbances: 0-None Visual Disturbances: 0-None Headache: 1-Very Mild CIWA-Ar Total Score: 9 S Progress Note (SOAP) Subjective: alert,irritable,anxious,interrupted sleep,tremor,pain in the body and back Objective: 06/13/20 12:00 Vital Signs Temperature 97.5 F L 06/13/20 08:38 Pulse Rate 103 H 06/13/20 08:38 Respiratory Rate 19 06/13/20 08:38 Blood Pressure 139/89 06/13/20 08:38 O2 Sat by Pulse Oximetry (%) 98 06/13/20 06:13 06/13/20 12:00 Laboratory Last Values WBC 6.2 K/mm3 (4.0-10.0) 06/13/20 07:45 RBC 3.40 M/mm3 (4.00-5.60) L 06/13/20 07:45 Hgb 11.6 GM/dL (11.7-16.9) L 06/13/20 07:45 Hct 35.0 % (35.4-49) L 06/13/20 07:45 MCV 102.9 fl (80-96) H 06/13/20 07:45 MCH 34.1 pg (25.7-33.7) H 06/13/20 07:45 MCHC 33.1 g/dl (32.0-35.9) 06/13/20 07:45 RDW 12.9 % (11.9-15.9) 06/13/20 07:45 Plt Count 59 K/MM3 (134-434) L 06/13/20 07:45 MPV 11.8 fl (7.5-11.1) H 06/13/20 07:45 Platelet Comment Present 06/13/20 07:45 Sodium 139 mmol/L (136-145) 06/13/20 07:45 Potassium 3.6 mmol/L (3.5-5.1) 06/13/20 07:45 Chloride 107 mmol/L (98-107) 06/13/20 07:45 Carbon Dioxide 26 mmol/L (21-32) 06/13/20 07:45 Anion Gap 7 MMOL/L (8-16) L 06/13/20 07:45 BUN 10.0 mg/dL (7-18) 06/13/20 07:45 Creatinine 0.7 mg/dL (0.55-1.3) 06/13/20 07:45 Est GFR (CKD-EPI)AfAm 144.72 06/13/20 07:45 Est GFR (CKD-EPI)NonAf 124.87 06/13/20 07:45 Random Glucose 89 mg/dL (74-106) 06/13/20 07:45 Calcium 9.4 mg/dL (8.5-10.1) 06/13/20 07:45 Total Bilirubin 0.6 mg/dL (0.2-1) 06/13/20 07:45 AST 201 U/L (15-37) H 06/13/20 07:45 ALT 196 U/L (13-61) H 06/13/20 07:45 Alkaline Phosphatase 100 U/L (45-117) 06/13/20 07:45 Total Protein 6.3 g/dl (6.4-8.2) L 06/13/20 07:45 Albumin 3.3 g/dl (3.4-5.0) L 06/13/20 07:45 Syphilis Serology Non-reactive (NONREACTIVE) 06/12/20 07:50 Assessment: 06/13/20 12:01 withdrawal symptom Plan: continue detox,repeat alt,ast in am
[2020-06-13] MEDS: MELATONIN 5 MG TABLETS PO SCH (22:12)
[2020-06-13] MEDS: QUEtiapine FUMARATE 50 MG TABLET PO SCH (22:12)
[2020-06-14] MEDS ORDERED: chlordiazePOXIDE HCL 10 MG CAPSULE PO PRN
[2020-06-14] MEDS: METHOCARBAMOL 500 MG TABLET PO PRN ×2 (05:30→21:58)
[2020-06-14] MEDS: ACETAMINOPHEN 325 MG TABLET (FP) PO PRN ×2 (05:30→21:58)
[2020-06-14] MEDS: chlordiazePOXIDE HCL 10 MG CAPSULE PO SCH ×4 (05:30→23:23)
--- NOTE | 2020-06-14 09:35 | PN ---
S CIWA - CIWA Score Nausea/Vomitin-Mild Nausea/No Vomiting Muscle Tremors: 2 Anxiety: 1-Mildly Anxious Agitation: 1-Slight > Activity Paroxysmal Sweats: No Perspiration Orientation: 0-Oriented Tacttile Disturbances: 1-Very Mild Itch/Numbness Auditory Disturbances: 0-None Visual Disturbances: 0-None Headache: 1-Very Mild CIWA-Ar Total Score: 7 BHS Progress Note (SOAP) Subjective: alert,irritable,anxious,interrupted sleep,nausea Objective: 06/14/20 09:52 Vital Signs Temperature 97.7 F 06/14/20 05:21 Pulse Rate 81 06/14/20 05:21 Respiratory Rate 18 06/14/20 05:21 Blood Pressure 132/72 06/14/20 05:21 O2 Sat by Pulse Oximetry (%) 97 06/14/20 05:21 06/14/20 09:52 Laboratory Results - last 24 hr 06/13/20 06/13/20 07:45 07:45 WBC 6.2 RBC 3.40 L Hgb 11.6 L Hct 35.0 L MCV 102.9 H MCH 34.1 H MCHC 33.1 RDW 12.9 Plt Count 59 L MPV 11.8 H Platelet Comment Present Sodium 139 Potassium 3.6 Chloride 107 Carbon Dioxide 26 Anion Gap 7 L BUN 10.0 Creatinine 0.7 Est GFR (CKD-EPI)AfAm 144.72 Est GFR (CKD-EPI)NonAf 124.87 Random Glucose 89 Calcium 9.4 Total Bilirubin 0.6 AST 201 H ALT 196 H Alkaline Phosphatase 100 Total Protein 6.3 L Albumin 3.3 L Assessment: 06/14/20 09:53 withdrawal symptom Plan: continue detox librium regimen ,repeat alt,ast pending
[2020-06-14] MEDS: PANTOPRAZOLE 40 MG TABLET PO SCH (10:09)
[2020-06-14] MEDS: SERTRALINE HCL 50 MG TABLET (FP) PO SCH (10:09)
[2020-06-14] MEDS: levETIRAcetam 500 MG TABLET (FP) PO SCH ×2 (10:09→21:56)
[2020-06-14] MEDS: THIAMINE HCL 100 MG TABLET (FP) PO SCH ×2 (10:10→21:56)
[2020-06-14] MEDS: FOLIC ACID 1 MG TABLET (FP) PO SCH (10:10)
[2020-06-14] MEDS: PRENATAL VITAMINS W/ FOLIC ACID TABLET (FP) PO SCH (10:10)
[2020-06-14 10:22] LABS: SGOT/AST 173 U/L (15-37); SGPT/ALT 245 U/L (13-61)
[2020-06-14] MEDS: hydrOXYzine PAMOATE 25 MG CAPSULE (FP) PO PRN (18:55)
[2020-06-14] MEDS: MELATONIN 5 MG TABLETS PO SCH (21:56)
[2020-06-14] MEDS: QUEtiapine FUMARATE 50 MG TABLET PO SCH (21:56)
[2020-06-15] MEDS: chlordiazePOXIDE HCL 10 MG CAPSULE PO SCH ×2 (05:30→18:08)
[2020-06-15] MEDS: METHOCARBAMOL 500 MG TABLET PO PRN (05:59)
[2020-06-15] MEDS: ACETAMINOPHEN 325 MG TABLET (FP) PO PRN ×2 (05:59→22:02)
--- NOTE | 2020-06-15 06:05 | PN ---
[facility] Progress Note Note: Patient's nurse, Simon Gonzalez called this morning that patient has no COVID test. Patient was admitted on 06/09/2020, transferred to [facility] ER with complaint of chest pain and was readmitted on 06/11/2020. This is the fourth day of patient's readmission to the floor. Nurse instructed to call the lab. to confirm if test was done at [facility]. Nursing manufactured buildings supervisor, Rama Bob notified Vital Signs Temperature 96.6 F L 06/14/20 20:30 Pulse Rate 91 H 06/14/20 20:30 Respiratory Rate 18 06/14/20 20:30 Blood Pressure 135/90 06/14/20 20:30 O2 Sat by Pulse Oximetry (%) 100 06/14/20 22:33 Laboratory Last Values WBC 6.2 K/mm3 (4.0-10.0) 06/13/20 07:45 RBC 3.40 M/mm3 (4.00-5.60) L 06/13/20 07:45 Hgb 11.6 GM/dL (11.7-16.9) L 06/13/20 07:45 Hct 35.0 % (35.4-49) L 06/13/20 07:45 MCV 102.9 fl (80-96) H 06/13/20 07:45 MCH 34.1 pg (25.7-33.7) H 06/13/20 07:45 MCHC 33.1 g/dl (32.0-35.9) 06/13/20 07:45 RDW 12.9 % (11.9-15.9) 06/13/20 07:45 Plt Count 59 K/MM3 (134-434) L 06/13/20 07:45 MPV 11.8 fl (7.5-11.1) H 06/13/20 07:45 Platelet Comment Present 06/13/20 07:45 Sodium 139 mmol/L (136-145) 06/13/20 07:45 Potassium 3.6 mmol/L (3.5-5.1) 06/13/20 07:45 Chloride 107 mmol/L (98-107) 06/13/20 07:45 Carbon Dioxide 26 mmol/L (21-32) 06/13/20 07:45 Anion Gap 7 MMOL/L (8-16) L 06/13/20 07:45 BUN 10.0 mg/dL (7-18) 06/13/20 07:45 Creatinine 0.7 mg/dL (0.55-1.3) 06/13/20 07:45 Est GFR (CKD-EPI)AfAm 144.72 06/13/20 07:45 Est GFR (CKD-EPI)NonAf 124.87 06/13/20 07:45 Random Glucose 89 mg/dL (74-106) 06/13/20 07:45 Calcium 9.4 mg/dL (8.5-10.1) 06/13/20 07:45 Total Bilirubin 0.6 mg/dL (0.2-1) 06/13/20 07:45 AST 173 U/L (15-37) H 06/14/20 08:00 ALT 245 U/L (13-61) H 06/14/20 08:00 Alkaline Phosphatase 100 U/L (45-117) 06/13/20 07:45 Total Protein 6.3 g/dl (6.4-8.2) L 06/13/20 07:45 Albumin 3.3 g/dl (3.4-5.0) L 06/13/20 07:45 Syphilis Serology Non-reactive (NONREACTIVE) 06/12/20 07:50 Action: Awaiting nurse confirmation of patient's status Continue detox
--- NOTE | 2020-06-15 09:55 | PN ---
S CIWA - CIWA Score Nausea/Vomitin-No Nausea/No Vomiting Muscle Tremors: 2 Anxiety: 1-Mildly Anxious Agitation: 1-Slight > Activity Paroxysmal Sweats: No Perspiration Orientation: 0-Oriented Tacttile Disturbances: 0-None Auditory Disturbances: 0-None Visual Disturbances: 0-None Headache: 0-None Present CIWA-Ar Total Score: 4 [facility] Progress Note (SOAP) Subjective: low back pain shakes anxiety Objective: 06/15/20 09:54 Vital Signs Temperature 97 F L 06/15/20 05:24 Pulse Rate 83 06/15/20 05:24 Respiratory Rate 16 06/15/20 05:24 Blood Pressure 137/78 06/15/20 05:24 O2 Sat by Pulse Oximetry (%) 100 06/15/20 05:24 aaox3 ambulating no acute distress Assessment: 06/15/20 09:54 withdrawals Plan: continue detox roboxin increased to 750mg prn lidocaine patch daily d/c in am
[2020-06-15] MEDS: PRENATAL VITAMINS W/ FOLIC ACID TABLET (FP) PO SCH (10:37)
[2020-06-15] MEDS: PANTOPRAZOLE 40 MG TABLET PO SCH (10:37)
[2020-06-15] MEDS: levETIRAcetam 500 MG TABLET (FP) PO SCH ×2 (10:37→21:59)
[2020-06-15] MEDS: SERTRALINE HCL 50 MG TABLET (FP) PO SCH (10:37)
[2020-06-15] MEDS: FOLIC ACID 1 MG TABLET (FP) PO SCH (10:37)
[2020-06-15] MEDS: THIAMINE HCL 100 MG TABLET (FP) PO SCH ×2 (10:38→21:59)
[2020-06-15] MEDS: LIDOCAINE 5% TOPICAL PATCH TP SCH (10:38)
[2020-06-15] MEDS: hydrOXYzine PAMOATE 25 MG CAPSULE (FP) PO PRN (10:40)
[2020-06-15] MEDS: NICOTINE POLACRILEX 2 MG GUM BUC PRN ×2 (13:34→18:28)
[2020-06-15] MEDS: METHOCARBAMOL 750 MG TABLET PO PRN (18:11)
[2020-06-15] MEDS: MELATONIN 5 MG TABLETS PO SCH (21:59)
[2020-06-15] MEDS ORDERED: LIDOCAINE PATCH REMOVAL MC SCH (22:00)
[2020-06-15] MEDS: QUEtiapine FUMARATE 50 MG TABLET PO SCH (22:00)
[2020-06-16] MEDS ORDERED: chlordiazePOXIDE HCL 10 MG CAPSULE PO ONE (05:00)
[2020-06-16] MEDS: METHOCARBAMOL 750 MG TABLET PO PRN (05:25)
[2020-06-16 06:10] VITALS: BP 128/77
[2020-06-16] MEDS: SERTRALINE HCL 50 MG TABLET (FP) PO SCH (09:19)
[2020-06-16] MEDS: FOLIC ACID 1 MG TABLET (FP) PO SCH (09:19)
[2020-06-16] MEDS: PANTOPRAZOLE 40 MG TABLET PO SCH (09:19)
[2020-06-16] MEDS: LIDOCAINE 5% TOPICAL PATCH TP SCH (09:20)
[2020-06-16] MEDS: levETIRAcetam 500 MG TABLET (FP) PO SCH (09:20)
[2020-06-16] MEDS: PRENATAL VITAMINS W/ FOLIC ACID TABLET (FP) PO SCH (09:20)
[2020-06-16] MEDS: THIAMINE HCL 100 MG TABLET (FP) PO SCH (09:20)
[2020-06-16] MEDS: ACETAMINOPHEN 325 MG TABLET (FP) PO PRN (09:22)
[2020-06-16 09:30] VITALS: PULSE 94; TEMP 97.3
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
== END 2020-06-16 10:40 | disposition home or self-care (01) | DRG 775 ==
LOC: YASAS 18:52 → Y6N 20:42
PROVIDERS: ADMIT Allergy & Immunology; ATTEND Allergy & Immunology
PROC: HZ2ZZZZ Detoxification Services for Substance Abuse Treatment (ICD-10-PCS; principal; 2020-06-11)
DX: F10.230 Alcohol dependence with withdrawal, uncomplicated (principal); F12.20 Cannabis dependence, uncomplicated; F17.210 Nicotine dependence, cigarettes, uncomplicated; F43.10 Post-traumatic stress disorder, unspecified; F32.9 Major depressive disorder, single episode, unspecified; D69.6 Thrombocytopenia, unspecified; D75.89 Other specified diseases of blood and blood-forming organs; M54.5 Low back pain; G89.29 Other chronic pain; J45.909 Unspecified asthma, uncomplicated; R74.0 Nonspecific elevation of levels of transaminase and lactic acid dehydrogenase [LDH]; E73.9 Lactose intolerance, unspecified; Z62.810 Personal history of physical and sexual abuse in childhood; Z87.828 Personal history of other (healed) physical injury and trauma; Z91.5 Personal history of self-harm; Z56.0 Unemployment, unspecified
CPT/HCPCS: 36415; 80053; 84450; 84460; 85027; 86780

== ENCOUNTER 2021-07-03 15:12 | Inpatient (IN) | payer OTHER ==
[2021-07-03 19:18] VITALS: BMI 31.5
[2021-07-03] MEDS ORDERED: MAG HYDROX/AL HYDROX/SIMETH 30 ML UNIT-DOSE CUP PO PRN (19:54)
[2021-07-03] MEDS ORDERED: MAGNESIUM CITRATE 300 ML BOTTLE PO PRN (19:54)
[2021-07-03] MEDS ORDERED: BISMUTH SUBSALICYLATE 524 MG/30 ML PO PRN (19:54)
[2021-07-03] MEDS ORDERED: MENTHOL/PHENOL 1 EACH UD MM PRN (19:54)
[2021-07-03] MEDS ORDERED: ACETAMINOPHEN 325 MG TABLET (FP) PO PRN (19:54)
[2021-07-03] MEDS ORDERED: NALOXONE (NARCAN) HCL 4 MG/0.1 ML SPRAY NS PRN (19:54)
[2021-07-03] MEDS ORDERED: MAGNESIUM HYDROX 2400MG/30ML ORAL SUSPENSION 30 ML CUP PO PRN (19:54)
[2021-07-03] MEDS ORDERED: diazePAM 5 MG TABLET PO PRN (19:54)
[2021-07-03] MEDS ORDERED: methaDONE HCL 10 MG TABLET (FOR DETOX USE ONLY) PO ONE (19:54)
[2021-07-03] MEDS ORDERED: cloNIDine HCL 0.1 MG TABLET PO PRN (19:54)
[2021-07-03] MEDS ORDERED: methaDONE HCL 10 MG TABLET (FOR DETOX USE ONLY) ONE (21:14)
[2021-07-03] MEDS ORDERED: METHOCARBAMOL 500 MG TABLET ONE (21:15)
[2021-07-03] MEDS: METHOCARBAMOL 500 MG TABLET PO PRN (21:18)
[2021-07-03] MEDS ORDERED: QUEtiapine FUMARATE 50 MG TABLET PO ONE (22:00)
[2021-07-03] MEDS ORDERED: diazePAM 5 MG TABLET ONE (23:21)
[2021-07-03] MEDS: MELATONIN 5 MG TABLETS PO SCH (23:22)
[2021-07-03] MEDS: THIAMINE HCL 100 MG TABLET (FP) PO SCH (23:23)
[2021-07-03] MEDS: diazePAM 5 MG TABLET PO SCH (23:24)
[2021-07-04] MEDS ORDERED: diazePAM 5 MG TABLET ONE (05:45)
[2021-07-04] MEDS: diazePAM 5 MG TABLET PO SCH ×4 (05:50→22:59)
[2021-07-04] MEDS ORDERED: methaDONE HCL 10 MG TABLET (FOR DETOX USE ONLY) ONE (10:26)
[2021-07-04] MEDS ORDERED: METHOCARBAMOL 500 MG TABLET ONE (10:26)
[2021-07-04] MEDS: METHOCARBAMOL 500 MG TABLET PO PRN ×2 (10:28→17:50)
[2021-07-04 12:13] LABS: CALCIUM 8.6 mg/dL (8.5-10.1); HEMATOCRIT 36.6 % (35.4-49); HEMOGLOBIN 12.1 GM/dL (11.7-16.9); MCH 32.8 pg (25.7-33.7); MCHC 33.2 g/dl (32.0-35.9); MEAN CELL VOLUME 98.9 fl (80-96); MEAN PLT VOLUME 9.9 fl (7.5-11.1); PLATELET COUNT 193 10^3/uL (134-434); RDW 13.3 % (11.9-15.9); WHITE BLOOD COUNT 6.2 K/mm3 (4.0-10.0)
[2021-07-04 12:14] LABS: ALBUMIN 3.2 g/dl (3.4-5.0); BLOOD UREA NITROGEN 6.9 mg/dL (7-18)
[2021-07-04 12:18] LABS: CREATININE 0.7 mg/dL (0.55-1.3)
[2021-07-04 12:19] LABS: TOT PROT 5.9 g/dl (6.4-8.2)
[2021-07-04 12:20] LABS: BILIRUBIN,TOTAL 0.5 mg/dL (0.2-1)
[2021-07-04 13:03] LABS: HIV INTERPRETATION NEGATIVE (NEGATIVE)
[2021-07-04] MEDS ORDERED: ALBUTEROL SO4 HFA INHALER IH PRN (13:33)
[2021-07-04] MEDS: PRENATAL VITAMINS W/ FOLIC ACID TABLET (FP) PO SCH (14:08)
[2021-07-04] MEDS: amLODIPine BESYLATE 5 MG TABLET (FP) PO SCH (14:08)
[2021-07-04] MEDS: IBUPROFEN 400 MG TABLET (FP) PO PRN (17:49)
[2021-07-04] MEDS: NICOTINE 10 MG CARTRIDGE (INHALER) IH PRN (17:52)
[2021-07-04] MEDS: QUEtiapine FUMARATE 50 MG TABLET PO SCH (22:59)
[2021-07-04] MEDS: levETIRAcetam 500 MG TABLET (FP) PO SCH (22:59)
[2021-07-04] MEDS: THIAMINE HCL 100 MG TABLET (FP) PO SCH (22:59)
[2021-07-04] MEDS: MELATONIN 5 MG TABLETS PO SCH (23:00)
[2021-07-04] MEDS: metoPROLOL SUCCINATE 25 MG TAB.SR.24H (FP) PO SCH (23:00)
[2021-07-04] MEDS ORDERED: MASKS NR ONE (23:03)
[2021-07-05] MEDS: diazePAM 5 MG TABLET PO SCH ×3 (05:56→21:40)
[2021-07-05] MEDS ORDERED: methaDONE HCL 10 MG TABLET (FOR DETOX USE ONLY) PO ONE (10:00)
[2021-07-05] MEDS: metoPROLOL SUCCINATE 25 MG TAB.SR.24H (FP) PO SCH ×2 (10:16→21:38)
[2021-07-05] MEDS: PRENATAL VITAMINS W/ FOLIC ACID TABLET (FP) PO SCH (10:16)
[2021-07-05] MEDS: amLODIPine BESYLATE 5 MG TABLET (FP) PO SCH (10:16)
[2021-07-05] MEDS: NICOTINE 10 MG CARTRIDGE (INHALER) IH PRN (10:16)
[2021-07-05] MEDS: levETIRAcetam 500 MG TABLET (FP) PO SCH ×2 (10:16→21:38)
[2021-07-05] MEDS: METHOCARBAMOL 500 MG TABLET PO PRN (10:35)
[2021-07-05] MEDS: IBUPROFEN 400 MG TABLET (FP) PO PRN (10:35)
[2021-07-05] MEDS: ACETAMINOPHEN 325 MG TABLET (FP) PO PRN (14:10)
[2021-07-05] MEDS ORDERED: NICOTINE POLACRILEX 4 MG GUM BUC PRN (14:40)
[2021-07-05] MEDS: QUEtiapine FUMARATE 50 MG TABLET PO SCH (21:38)
[2021-07-05] MEDS: THIAMINE HCL 100 MG TABLET (FP) PO SCH (21:38)
[2021-07-05] MEDS: MELATONIN 5 MG TABLETS PO SCH (21:41)
[2021-07-06] MEDS: diazePAM 5 MG TABLET PO SCH ×2 (06:49→17:57)
[2021-07-06] MEDS: NICOTINE 10 MG CARTRIDGE (INHALER) IH PRN ×2 (07:31→19:09)
[2021-07-06] MEDS ORDERED: methaDONE HCL 10 MG TABLET (FOR DETOX USE ONLY) ONE (09:11)
[2021-07-06] MEDS: PRENATAL VITAMINS W/ FOLIC ACID TABLET (FP) PO SCH (10:07)
[2021-07-06] MEDS: metoPROLOL SUCCINATE 25 MG TAB.SR.24H (FP) PO SCH ×2 (10:08→22:28)
[2021-07-06] MEDS: levETIRAcetam 500 MG TABLET (FP) PO SCH ×2 (10:08→22:28)
[2021-07-06] MEDS: amLODIPine BESYLATE 5 MG TABLET (FP) PO SCH (10:08)
[2021-07-06] MEDS: IBUPROFEN 400 MG TABLET (FP) PO PRN ×2 (10:10→17:56)
[2021-07-06] MEDS: METHOCARBAMOL 500 MG TABLET PO PRN ×2 (10:10→17:57)
[2021-07-06] MEDS: THIAMINE HCL 100 MG TABLET (FP) PO SCH (22:28)
[2021-07-06] MEDS: QUEtiapine FUMARATE 50 MG TABLET PO SCH (22:28)
[2021-07-06] MEDS: MELATONIN 5 MG TABLETS PO SCH (22:29)
[2021-07-07] MEDS ORDERED: diazePAM 5 MG TABLET PO ONE (06:00)
[2021-07-07] MEDS: METHOCARBAMOL 500 MG TABLET PO PRN ×2 (06:36→22:16)
[2021-07-07] MEDS: ACETAMINOPHEN 325 MG TABLET (FP) PO PRN ×2 (06:36→15:50)
[2021-07-07] MEDS ORDERED: methaDONE HCL 10 MG TABLET (FOR DETOX USE ONLY) PO ONE (10:00)
[2021-07-07] MEDS: amLODIPine BESYLATE 5 MG TABLET (FP) PO SCH (10:39)
[2021-07-07] MEDS: levETIRAcetam 500 MG TABLET (FP) PO SCH ×2 (10:39→22:16)
[2021-07-07] MEDS: metoPROLOL SUCCINATE 25 MG TAB.SR.24H (FP) PO SCH ×2 (10:39→22:16)
[2021-07-07] MEDS: PRENATAL VITAMINS W/ FOLIC ACID TABLET (FP) PO SCH (10:39)
[2021-07-07] MEDS: IBUPROFEN 400 MG TABLET (FP) PO PRN ×2 (10:41→22:15)
[2021-07-07] MEDS: NICOTINE 10 MG CARTRIDGE (INHALER) IH PRN (10:43)
[2021-07-07] MEDS: THIAMINE HCL 100 MG TABLET (FP) PO SCH (22:15)
[2021-07-07] MEDS: MELATONIN 5 MG TABLETS PO SCH (22:16)
[2021-07-07] MEDS: QUEtiapine FUMARATE 50 MG TABLET PO SCH (22:16)
[2021-07-08 09:09] VITALS: BP 102/68; PULSE 70; TEMP 97.2
[2021-07-08] MEDS: NICOTINE 10 MG CARTRIDGE (INHALER) IH PRN (09:48)
[2021-07-08] MEDS: PRENATAL VITAMINS W/ FOLIC ACID TABLET (FP) PO SCH (09:48)
[2021-07-08] MEDS: amLODIPine BESYLATE 5 MG TABLET (FP) PO SCH (09:48)
[2021-07-08] MEDS: levETIRAcetam 500 MG TABLET (FP) PO SCH (09:48)
[2021-07-08] MEDS: metoPROLOL SUCCINATE 25 MG TAB.SR.24H (FP) PO SCH (09:48)
== END 2021-07-08 10:14 | disposition other institution (70) | DRG 773 ==
LOC: YASAS 15:12 → Y3N 07-04 12:22
PROVIDERS: ADMIT Allergy & Immunology; ATTEND Allergy & Immunology
PROC: HZ2ZZZZ Detoxification Services for Substance Abuse Treatment (ICD-10-PCS; principal; 2021-07-04)
DX: F11.23 Opioid dependence with withdrawal (principal); F10.230 Alcohol dependence with withdrawal, uncomplicated; F17.210 Nicotine dependence, cigarettes, uncomplicated; F19.24 Other psychoactive substance dependence with psychoactive substance-induced mood disorder; F43.10 Post-traumatic stress disorder, unspecified; G47.00 Insomnia, unspecified; I10 Essential (primary) hypertension; J45.909 Unspecified asthma, uncomplicated; K21.9 Gastro-esophageal reflux disease without esophagitis; G40.909 Epilepsy, unspecified, not intractable, without status epilepticus; M54.5 Low back pain; G89.29 Other chronic pain; Z86.59 Personal history of other mental and behavioral disorders; Z59.0 Homelessness; Z91.19 Patient's noncompliance with other medical treatment and regimen
CPT/HCPCS: 36415; 80053; 80177; 85027; 86780; 87389; 93005; 93010; C9803; J0735; U0003; U0005